=== PATIENT | female | born 1935 | race African-American/Black ===

== ENCOUNTER → 2017-03-24 | Outpatient (CLI) | payer OTHER, BC ==
[~2017-03-24] VITALS: Ht 154.9 cm; Wt 46.7 kg
[~2017-03-24] MED LIST: AMLODIPINE BESY10 MG PO; HYDRALAZINE 2525 MG PO; HYDROXYCHLOROQ200 M1 PO; NEURONTIN 300300 M1 PO; PERCOCET 10-321 EACH PO; PROZAC20 MG PO; XANAX 0.25 MG0.25 MG PO
--- NOTE | ~2017-03-24 | HPC ---
[facility] [place] [address] PAIN MANAGEMENT CONSULTATION Name: GOLDEN COLÓN Room #: REG [facility] ..#: [id number] Admission: 03/24/17 Attend Phys: Get Ricci DO Discharge: Date of : 35 Report #: [id number] THIS REPORT FOR: //name// CC: Get Montano MD DATE OF SERVICE: 03/24/2017 REFERRING PHYSICIAN: Jaqueline Montano MD CHIEF COMPLAINT: Low back pain, right lower extremity pain and paresthesias. HISTORY OF PRESENT ILLNESS: As you know, the patient is a very pleasant 81-year-old female who was last in our clinic on 11/11/2016 where she underwent a lumbar epidural injection under fluoroscopic guidance to address lumbar radicular symptoms. She returns today in followup visit stating she continues to experience good benefit with the previous injection, but is now placing pain score of 1-4/10. She reports 100% improvement in overall pain with previous injection, and then back to about 70% improvement overall. She has returned today requesting an epidural injection under fluoroscopic guidance to build on success of previous intervention. The patient denies injury or trauma that may have led to progression of symptoms. ALLERGIES: No known drug allergies. CURRENT MEDICATIONS: Fluoxetine 20 mg per day, gabapentin 300 mg 2 tabs p.o. b.i.d., hydralazine 25 mg per day, amlodipine 10 mg per day. SOCIAL HISTORY: The patient denies tobacco, alcohol, IV or illicit drug use. She is accompanied by her son who is present in the waiting room. IMAGING: No new imaging available. PHYSICAL EXAMINATION: VITAL SIGNS: Blood pressure 142/82, pulse 60, respiratory rate 14, unlabored. The patient is 97% on room air, height 5 feet 1 inch tall, weight 103 pounds, BMI calculated 19.5. GENERAL: Well-developed, well-nourished, well-hydrated 81-year-old female appearing stated age, pain is rated today at 1-4/10. HEENT: Normocephalic and atraumatic. Pupils equal, round, reactive to light. EXTREMITIES: Show no clubbing, no cyanosis, no edema. MUSCULOSKELETAL: Seated straight leg raising negative. Supine straight leg raising is mildly positive on the right. Fabere's test negative. Modified Gaenslen's positive for axial low back pain. Muscle bulk and tone equal and symmetrical in lower extremities. Strength is 5/5, intact to light touch from [address] [address] PAIN MANAGEMENT CONSULTATION Name: GOLDEN COLÓN Room #: REG [facility].#: [id number] Admission: 03/24/17 Attend Phys: Get Ricci DO Discharge: Date of : 35 Report #: [id number] L1 through S2 dermatomes. ASSESSMENT: 1. Symptomatic lumbar radiculopathy. 2. Lumbosacral spondylosis with radiculopathy. 3. Chronic intractable pain. PLAN: 1. The patient returns today in followup visit with the pain score of 4/10. She has noted 100% improvement in overall pain with the epidural injection lasting until just recently where she had a slow and progressive return of symptoms. She is now placing pain score around 1-4/10 depending on activity. She is requesting and we will perform the next in a series of epidural injections under fluoroscopic guidance. The patient was advised this is the third in the 6-month series, next available injection would be 04/27/2016, states she understands and does wish to undergo the procedure today in hopes of building on success of previous intervention. 2. No medication changes were made at today's visit, the patient to continue current medical therapy as previously prescribed. 3. The patient to return to our clinic on an as needed basis for next in a series of epidural injections. PROCEDURE NOTE DESCRIPTION OF PROCEDURE: L5-S1 right paramedian epidural steroid injection under fluoroscopic guidance. This is the third procedure of the first series that the patient is undergoing. After obtaining written consent, the patient was taken back to the fluoroscopy suite, placed in a prone position with pillow under the abdomen to decrease lumbar lordosis. The skin overlying the lumbosacral area was then prepped and draped in aseptic fashion. The L5-S1 vertebral interspace was then identified by AP fluoroscopy. The skin and subcutaneous tissue overlying the target site of injection was anesthetized with 3 mL 1% lidocaine. A 20-gauge 3-1/2 inch Tuohy needle was then advanced under fluoroscopic guidance towards the epidural space using a right paramedian approach. The epidural space was identified using loss of resistance to air technique. After negative aspiration for heme or cerebrospinal fluid, a total of 1 mL of Omnipaque was injected. A lumbar epidurogram was confirmed using both AP and lateral fluoroscopy. After negative aspiration for heme or cerebrospinal fluid, 5 mL of solution containing 2 mL 40 mg per mL, 80 mg total triamcinolone, 3 mL lidocaine 1% was injected in increments. Contrast spread was noted posterior epidural space. The needle was then retracted approximately half way and needle tract flushed with 1 mL of 1% lidocaine. Needle was then removed. There were no [address] [address] PAIN MANAGEMENT CONSULTATION Name: GOLDEN COLÓN Room #: REG [facility]#: [id number] Admission: 03/24/17 Attend Phys: Get Ricci DO Discharge: Date of : 35 Report #: [id number] apparent sensory or motor deficits in the lower extremity following the procedure. A sterile bandage was placed over the injection site. The heart rate, pulse, oximetry and blood pressure were continuously monitored after the procedure. There were no apparent complications. The patient tolerated the procedure well and was carefully escorted to the recovery room in stable condition. There were no apparent complications. After meeting discharge criteria, the patient was then discharged home. By: [id number] Get Ricci DO /nt
[2017-03-24 12:51] VITALS: BP 142/82
== END ==
LOC: PAIN 12-09 09:54
DX: M47.27 Other spondylosis with radiculopathy, lumbosacral region (principal); I10 Essential (primary) hypertension; F32.89 Other specified depressive episodes

== ENCOUNTER → 2017-07-07 | Outpatient (CLI) | payer OTHER, BC ==
[~2017-07-07] VITALS: Ht 154.9 cm; Wt 48.4 kg
[~2017-07-07] MED LIST changes: +ALPHAGAN P15 ML OP; +COSOPT OCUMETER10 M1 OP
--- NOTE | ~2017-07-07 | HPC ---
[facility] [address] [address] PAIN MANAGEMENT CONSULTATION Name: GOLDEN COLÓN Room #: REG [facility]..#: [id number] Admission: 07/07/17 Attend Phys: Get Ricci DO Discharge: Date of : 35 Report #: [id number] THIS REPORT FOR: //name// CC: Get Montano MD DATE OF SERVICE: 07/07/2017 DATE OF SERVICE: 07/07/2017 CHIEF COMPLAINT: Low back pain, right lower extremity pain and paresthesias. HISTORY OF PRESENT ILLNESS: As you know, the patient is an extremely pleasant 81-year-old female, who returns today in followup visit to undergo next in the series of epidural injections. She reports previous epidural injection provided 80% improvement in overall pain. This lasted until just the early part of June with a slow and progressive return of symptoms. She denies injury or trauma that may have led to recurrence of symptoms. She returns requesting epidural injection under fluoroscopic guidance. ALLERGIES: No known drug allergies. CURRENT MEDICATIONS: Fluoxetine, gabapentin, hydralazine, amlodipine. SOCIAL HISTORY: The patient denies tobacco, alcohol, IV or illicit drug use. She is unaccompanied today. IMAGING: No new imaging available. PHYSICAL EXAMINATION: VITAL SIGNS: Blood pressure 131/74, pulse 67, respiratory rate 16, unlabored. The patient is 96% on room air, height 5 feet 1 inch tall, weight 106.6 pounds, BMI calculated 20.2. GENERAL: Well developed, well nourished, well hydrated 81-year-old female appearing her stated age placing current pain score at 5-7/10. HEENT: Normocephalic, atraumatic. Pupils equal, round, reactive to light. Extraocular muscles are intact. Sclerae nonicteric without injection. NEUROLOGIC: Cranial nerves 2-12 grossly intact. Speech fluent. EXTREMITIES: Show no clubbing, no cyanosis, no edema. MUSCULOSKELETAL: Lower extremity strength equal and symmetrical 5/5. Seated straight leg raising negative. Supine straight leg raising positive on the right. Fabere's test negative. Modified Gaenslen's positive for axial low back pain. ASSESSMENT: [facility] [address] [place] [address] PAIN MANAGEMENT CONSULTATION Name: GOLDEN COLÓN Room #: REG [facility]#: [id number] Admission: 07/07/17 Attend Phys: Get Ricci DO Discharge: Date of : 35 Report #: [id number] 1. Symptomatic lumbar radiculopathy. 2. Lumbosacral spondylosis with radiculopathy. 3. Chronic intractable pain. PLAN: 1. The patient returns today in followup visit requesting to undergo next in the series of epidural injections under fluoroscopic guidance. As you are aware, the patient received 80% improvement in overall pain with previous epidural injection lasting until just a couple of days ago. The patient has had a slow and progressive return of symptoms, returning in followup visit requesting epidural injection to build on success of previous intervention. The patient was advised risks and benefits of a lumbar epidural injection. These risks include but are not necessarily limited to bleeding, bruising, infection, worsening pain, no relief of pain, also risk of temporary or permanent muscle weakness, temporary or permanent nerve damage, possible paralysis and . The patient states understood and wished to proceed. 2. No medication changes were made at today's visit, the patient continue current medical therapy as previously prescribed. 3. The patient to return to our clinic on an as needed basis for the next in a series of epidural injection and to discuss other treatment options for lumbar radiculopathy. DESCRIPTION OF PROCEDURE: L5-S1 right paramedian epidural steroid injection under fluoroscopic guidance. This is the first procedure of the second series that the patient is undergoing. After obtaining written consent, the patient was taken back to the fluoroscopy suite, placed in a prone position with pillow under the abdomen to decrease lumbar lordosis. The skin overlying the lumbosacral area was then prepped and draped in aseptic fashion. The L5-S1 vertebral interspace was then identified by AP fluoroscopy. The skin and subcutaneous tissue overlying the target site of injection was anesthetized with 3 mL 1% lidocaine. A 20-guage 3-1/2 inches Tuohy needle was then advanced under fluoroscopic guidance towards the epidural space using a right paramedian approach. The epidural space was identified using loss of resistance to air technique. After negative aspiration for heme or cerebrospinal fluid, a total of 1 mL of Omnipaque was injected. A lumbar epidurogram was confirmed using both AP and lateral fluoroscopy. After negative aspiration for heme or cerebrospinal fluid, 5 mL of a solution containing 2 mL 40 mg per mL, 80 mL total triamcinolone, 3 mL of lidocaine 1% was injected in increments. Contrast spread was noted posterior epidural space. The needle was then retracted approximately half way and needle tract flushed with 1 mL of 1% lidocaine. Needle was then removed. There were no apparent sensory or motor deficits in the lower extremity following the [facility] [address] [place] [address] PAIN MANAGEMENT CONSULTATION Name: GOLDEN COLÓN Room #: REG OZ Raya#: [id number] Admission: 07/07/17 Attend Phys: Get Ricci DO Discharge: Date of : 35 Report #: [id number] procedure. A sterile bandage was placed over the injection site. The heart rate, pulse, oximetry and blood pressure were continuously monitored after the procedure. There were no apparent complications. The patient tolerated the procedure well and was carefully escorted to the recovery room in stable condition. There were no apparent complications. After meeting discharge criteria, the patient was then discharged home. <ELECTRONICALLY SIGNED> By: Get Ricci DO 07/08/17 0833 [id number] Get Ricci DO /nt
[2017-07-07 13:03] VITALS: BP 131/74
== END | disposition home or self-care (01) ==
LOC: PAIN 06-23 08:59
DX: M54.16 Radiculopathy, lumbar region (principal); M47.27 Other spondylosis with radiculopathy, lumbosacral region; G89.29 Other chronic pain; Z79.899 Other long term (current) drug therapy

== ENCOUNTER → 2017-09-09 | Outpatient (CLI) | payer OTHER, BC ==
[~2017-09-09] VITALS: Ht 154.9 cm; Wt 50.1 kg
--- NOTE | ~2017-09-09 | HPC ---
[facility] [place] [address] PAIN MANAGEMENT CONSULTATION Name: GOLDEN COLÓN Room #: REG [facility]..#: [id number] Admission: 09/09/17 Attend Phys: Get Ricci DO Discharge: Date of : 35 Report #: [id number] THIS REPORT FOR: //name// CC: Get Montano MD DATE OF SERVICE: 09/09/2017 REFERRING PHYSICIAN: Jaqueline Montano MD CHIEF COMPLAINT: Low back pain, right lower extremity pain and paresthesias. HISTORY OF PRESENT ILLNESS: As you know, the patient is a very pleasant 82-year-old female who returns today in followup visit with recurrent low back pain, right lower extremity pain with paresthesias. The patient is placing pain score today at around 5/10, daily average at 7/10. She reports a 70% improvement in overall pain with the injection provided in June, but unfortunately has had a slow and progressive return of symptoms. She returns today requesting next in a series of epidural injections to build on the success of previous intervention. ALLERGIES: No known drug allergies. CURRENT MEDICATIONS: Fluoxetine, gabapentin, hydralazine, and amlodipine. SOCIAL HISTORY: The patient denies tobacco, alcohol, IV or illicit drug use. She is unaccompanied today. IMAGING: No new imaging available. PHYSICAL EXAMINATION: VITAL SIGNS: Blood pressure 136/76, pulse 70, respiratory rate 14 and unlabored, the patient is 98% on room air, height 5 feet 1 inch tall, weight 110.4 pounds, and BMI calculated 20.9. GENERAL: Well-developed, well-nourished, well-hydrated, thin 82-year-old female, appearing her stated age, she is placing current pain score 5-7/10 depending on activity. HEENT: Normocephalic, atraumatic. Pupils are equal, round, and reactive to light. Extraocular muscles are intact. EXTREMITIES: Show no clubbing, no cyanosis, and no edema. MUSCULOSKELETAL: Seated straight leg raising negative. Supine straight leg raising mildly positive on the right. Jossie's test negative. Modified Gaenslen's positive for axial low back pain. ASSESSMENT: [facility] [address] [place] [address] PAIN MANAGEMENT CONSULTATION Name: GOLDEN COLÓN Room #: REG [facility]#: [id number] Admission: 09/09/17 Attend Phys: Get Ricci DO Discharge: Date of : 35 Report #: [id number] 1. Symptomatic lumbar radiculopathy. 2. Lumbosacral spondylosis with radiculopathy. 3. Chronic intractable pain. PLAN: 1. The patient returns today in followup visit requesting to undergo next in the series of epidural injections. She reported good benefit with the previous epidural injection provided in June. She returns today requesting next in the series in hopes of building on success of previous intervention. The patient was advised risks and benefits of the procedure and states understood and wished to proceed. 2. No medication changes were made at today's visit, the patient to continue current medical therapy as previously prescribed. 3. The patient to return to our clinic on an as needed basis to undergo potential next in a series of epidural injections. PROCEDURE NOTE DESCRIPTION OF PROCEDURE: L5-S1 right paramedian epidural steroid injection under fluoroscopic guidance. This is the first procedure of the second series that the patient is undergoing. After obtaining written consent, the patient was taken back to the fluoroscopy suite, placed in a prone position with pillow under the abdomen to decrease lumbar lordosis. The skin overlying the lumbosacral area was then prepped and draped in aseptic fashion. The L5-S1 vertebral interspace was then identified by AP fluoroscopy. The skin and subcutaneous tissue overlying the target site of injection was anesthetized with 3 mL 1% lidocaine. A 20-gauge 3-1/2-inch Tuohy needle was then advanced under fluoroscopic guidance towards the epidural space using a right paramedian approach. The epidural space was identified using loss of resistance to air technique. After negative aspiration for heme or cerebrospinal fluid, a total of 1 mL of Omnipaque was injected. A lumbar epidurogram was confirmed using both AP and lateral fluoroscopy. After negative aspiration for heme or cerebrospinal fluid, 5 mL of a solution containing 2 mL 40 mg per mL, 80 mg total triamcinolone, 3 mL lidocaine 1% was injected in increments. Contrast spread was noted posterior epidural space. The needle was then retracted approximately half way and needle tract flushed with 1 mL of 1% lidocaine. Needle was then removed. There were no apparent sensory or motor deficits in the lower extremity following the procedure. A sterile bandage was placed over the injection site. The heart rate, pulse, oximetry and blood pressure were continuously monitored after the procedure. There were no apparent complications. The patient tolerated the procedure well and was carefully escorted to the recovery room in [address] [address] PAIN MANAGEMENT CONSULTATION Name: GOLDEN COLÓN Room #: REG [facility]#: [id number] Admission: 09/09/17 Attend Phys: Get Ricci DO Discharge: Date of : 35 Report #: [id number] stable condition. There were no apparent complications. After meeting discharge criteria, the patient was then discharged home. By: [id number] Get Ricci DO /nt
[2017-09-09 08:28] VITALS: BP 136/76
== END | disposition home or self-care (01) ==
LOC: PAIN 06:55
DX: M47.27 Other spondylosis with radiculopathy, lumbosacral region (principal); G89.29 Other chronic pain; Z79.899 Other long term (current) drug therapy; Z98.890 Other specified postprocedural states

== ENCOUNTER → 2017-12-02 | Outpatient (CLI) | payer OTHER, BC ==
[~2017-12-02] VITALS: Ht 154.9 cm; Wt 50.0 kg
[~2017-12-02] MED LIST changes: +LIPITOR 20 MG T20 M1 PO; +NEURONTIN600 MG PO
--- NOTE | ~2017-12-02 | HPC ---
[facility] [address] [place] [address] PAIN MANAGEMENT CONSULTATION Name: GOLDEN COLÓN Room #: REG OZ M.Saeed.#: [id number] Admission: 12/02/17 Attend Phys: Get Ricci DO Discharge: Date of : 35 Report #: [id number] THIS REPORT FOR: //name// CC: Get Montano DATE OF SERVICE: 12/02/2017 REFERRING PHYSICIAN: Jaqueline Montano MD. CHIEF COMPLAINT: Low back pain, right lower extremity pain and paresthesias. HISTORY OF PRESENT ILLNESS: As you know, the patient is a very pleasant 82-year-old female who returns today in followup visit with recurrent low back pain and right lower extremity pain with paresthesias. The patient places pain score 3/10, states activity exacerbates symptoms as does awakening in the morning hours and trying to stand from bed. She indicates pain is aching, numbness, tingling and weakness on the right side. Repositioning, exercising, epidural injections tend to improve pain. The patient reports a 75% improvement in overall pain with previous epidural injection lasting until just about 1 week ago. She made today's appointment to undergo the next in a series of epidural injections. She denies new injury or new trauma that may have led to recurrence of symptoms. ALLERGIES: No known drug allergies. CURRENT MEDICATIONS: Fluoxetine, gabapentin, hydralazine, amlodipine. SOCIAL HISTORY: The patient denies tobacco, alcohol, IV or illicit drug use. She is unaccompanied today. IMAGING: No new imaging available. PHYSICAL EXAMINATION: VITAL SIGNS: Blood pressure 123/64, pulse 74, respiratory rate 14 and unlabored. The patient is 97% on room air. Height 5 feet 1 inch tall, weight 110.2 pounds, BMI calculated 20.8. GENERAL: Well-developed, well-nourished, well-hydrated 82-year-old female, appearing her stated age. She is placing current pain score at 3/10. HEENT: Normocephalic, atraumatic. Pupils equal, round, reactive to light. Extraocular muscles are intact. Speech is fluent. EXTREMITIES: Show no clubbing, no cyanosis, no edema. MUSCULOSKELETAL: Seated straight leg raising negative. Supine straight leg raising positive right. KWADWO test negative. Muscle bulk and tone equal and symmetrical in lower extremities. She is intact to light touch from L1 through [address] [address] PAIN MANAGEMENT CONSULTATION Name: GOLDEN COLÓN Room #: REG CLI [facility]#: [id number] Admission: 12/02/17 Attend Phys: Get Ricci DO Discharge: Date of : 35 Report #: [id number] S2 dermatomes. ASSESSMENT: 1. Symptomatic lumbar radiculopathy. 2. Lumbosacral spondylosis with radiculopathy. 3. Lumbar degeneration. 4. Chronic intractable pain. PLAN: 1. The patient returns today in followup visit to undergo next in the series of epidural injections under fluoroscopic guidance. She reports 75% improvement in overall pain with previous epidural injection, hopeful to see similar improvement today. She has been advised risks and benefits of the procedure, states understood and wished to proceed. 2. No medication changes were made at today's visit. The patient to continue current medical therapy as previously prescribed. 3. The patient to return to our clinic on an as needed basis for possible next in a series of epidural injections and discuss other treatment options including a spinal cord stimulator and surgical options if requested. PROCEDURE NOTE PROCEDURE: L5-S1 right paramedian epidural steroid injection under fluoroscopic guidance. DESCRIPTION OF PROCEDURE: This is the 2nd procedure of the 2nd series that the patient is undergoing. After obtaining written consent, the patient was taken back to the fluoroscopy suite, placed in a prone position with pillow under the abdomen to decrease lumbar lordosis. The skin overlying the lumbosacral area was then prepped and draped in aseptic fashion. The L5-S1 vertebral interspace was then identified by AP fluoroscopy. The skin and subcutaneous tissue overlying the target site of injection was anesthetized with 3 mL 1% lidocaine. A 20-guage 3.5-inch Tuohy needle was then advanced under fluoroscopic guidance towards the epidural space using a right paramedian approach. The epidural space was identified using loss of resistance to air technique. After negative aspiration for heme or cerebrospinal fluid, a total of 1 mL of Omnipaque was injected. A lumbar epidurogram was confirmed using both AP and lateral fluoroscopy. After negative aspiration for heme or cerebrospinal fluid, 5 mL of a solution containing 2 mL 40 mg/mL, 80 mg total triamcinolone, 3 mL of lidocaine 1% was injected in increments. Contrast spread was noted posterior epidural space. The needle was then retracted approximately half way and needle tract flushed with 1 mL of 1% lidocaine. Needle was then removed. There were no apparent sensory or motor deficits in the lower extremity following the [facility] [address] [place] [address] PAIN MANAGEMENT CONSULTATION Name: GOLDEN COLÓN Room #: REG [facility] Zakiya.#: [id number] Admission: 12/02/17 Attend Phys: Get Ricci DO Discharge: Date of : 35 Report #: [id number] procedure. A sterile bandage was placed over the injection site. The heart rate, pulse, oximetry and blood pressure were continuously monitored after the procedure. There were no complications. The patient tolerated the procedure well and was carefully escorted to the recovery room in stable condition. There were no apparent complications. After meeting discharge criteria, the patient was then discharged home. <ELECTRONICALLY SIGNED> By: Get Ricci DO 12/07/17 1200 [id number] Get Ricci DO /nt
[2017-12-02 08:27] VITALS: BP 123/64
== END | disposition home or self-care (01) ==
LOC: PAIN 06:54
DX: M51.16 Intervertebral disc disorders with radiculopathy, lumbar region (principal); G89.29 Other chronic pain; M47.27 Other spondylosis with radiculopathy, lumbosacral region; Z79.899 Other long term (current) drug therapy

== ENCOUNTER → 2018-06-30 | Outpatient (CLI) | payer OTHER, BC ==
[~2018-06-30] VITALS: Ht 154.9 cm; Wt 49.5 kg
[~2018-06-30] MED LIST changes: -LIPITOR 20 MG T20 M1 PO
--- NOTE | ~2018-06-30 | HPC ---
[facility] [place] [address] PAIN MANAGEMENT CONSULTATION Name: GOLDEN COLÓN Room #: REG OZ Sigala.#: [id number] Admission: 06/30/18 Attend Phys: Get Ricci DO Discharge: Date of : 35 Report #: [id number] THIS REPORT FOR: //name// CC: FAM physician/PCP Get MONTANO MD DATE OF SERVICE: 06/30/2018 REFERRING PHYSICIAN: Jaqueline Montano MD CHIEF COMPLAINT: Low back pain, right lower extremity pain and paresthesias. HISTORY OF PRESENT ILLNESS: As you know, the patient is an extremely pleasant 82-year-old female who returns today in followup visit to undergo next in the series of epidural injections. The patient reports 98% improvement in overall pain with the previous epidural injection lasting for 2 months. The patient denies new injury or trauma that may have led to symptom recurrence. She states her pain has slowly and progressively returned. She requests next in the series of epidural injections under fluoroscopic guidance to be provided today to address lumbar radicular symptoms involving low back and right lower extremity. ALLERGIES: No known drug allergies. CURRENT MEDICATIONS: Gabapentin, alprazolam, Alphagan, Cosopt, fluoxetine, hydralazine and amlodipine. SOCIAL HISTORY: The patient denies tobacco, alcohol, IV or illicit drug use. She is retired, retired years ago, unaccompanied today. IMAGING: No new imaging available. PQRS: The patient has osteoarthritis of the low back, bilateral knees and hips. No rheumatoid arthritis. She is treated for hypertension, but is not on blood thinners. She is placing pain score today at approximately 3/10. She is not a fall risk, has not had a fall in the last 3 months. Pain impact score at around 20/70, mild interference. PHYSICAL EXAMINATION: VITAL SIGNS: Blood pressure 120/75, pulse 73, respiratory rate 14 and unlabored, the patient is 95% on room air, height 5 feet 1 inch tall, weight 109.2 pounds, and BMI calculated 20.6. GENERAL: Well-developed, well-nourished, well-hydrated 82-year-old female, appearing stated age, placing current pain score 3/10. HEENT: Normocephalic, atraumatic. Pupils are equal, round, and reactive to light. Speech remains fluent. The patient deemed an excellent historian. [address] [address] PAIN MANAGEMENT CONSULTATION Name: GOLDEN COLÓN Room #: REG CLI [facility]#: [id number] Admission: 06/30/18 Attend Phys: Get Ricci DO Discharge: Date of : 35 Report #: [id number] EXTREMITIES: Show no clubbing, no cyanosis, and no edema. MUSCULOSKELETAL: Lower extremity strength is symmetrical again today 5/5, intact to light touch from L1 through S2 dermatomes. Seated straight leg raising negative. Supine straight leg raising positive on the right. Jossie's test negative. Gait is normal. ASSESSMENT: 1. Symptomatic lumbar radiculopathy. 2. Lumbosacral spondylosis with radiculopathy. 3. Lumbar degeneration. 4. Chronic intractable pain. PLAN: 1. The patient returns today in followup visit to undergo next in the series of epidural injections. As indicated above, the patient received 98% improvement in overall pain with previous epidural injection, she returns today requesting repeating the injection today to build on success to address the 3/10 pain. The patient was advised risks and benefits of the procedure, states understood and wished to proceed. 2. No medication changes made at today's visit. The patient will continue current medical therapy as previously prescribed. 3. We will see the patient back in followup visit on an as needed basis for possible next in the series of epidural injections. PROCEDURE NOTE DESCRIPTION OF PROCEDURE: L5-S1 right paramedian epidural steroid injection under fluoroscopic guidance. This is the second procedure of the third series that the patient is undergoing. After obtaining written consent, the patient was taken back to the fluoroscopy suite, placed in a prone position with pillow under the abdomen to decrease lumbar lordosis. The skin overlying the lumbosacral area was then prepped and draped in aseptic fashion. The L5-S1 vertebral interspace was then identified by AP fluoroscopy. The skin and subcutaneous tissue overlying the target site of injection was anesthetized with 3 mL 1% lidocaine. A 20-gauge 3-1/2-inch Tuohy needle was then advanced under fluoroscopic guidance towards the epidural space using a right paramedian approach. The epidural space was identified using loss of resistance to air technique. After negative aspiration for heme or cerebrospinal fluid, a total of 1 mL of Omnipaque was injected. A lumbar epidurogram was confirmed using both AP and lateral fluoroscopy. After negative aspiration for heme or cerebrospinal fluid, 5 mL of a solution containing 2 mL 40 mg per mL, 80 mg total triamcinolone, 3 mL lidocaine 1% was injected in increments. Contrast spread was noted posterior [facility] [address] [place] [address] PAIN MANAGEMENT CONSULTATION Name: GOLDEN COLÓN Room #: REG Marly Sigala#: [id number] Admission: 06/30/18 Attend Phys: Get Ricci DO Discharge: Date of : 35 Report #: [id number] epidural space. The needle was then retracted approximately half way and needle tract flushed with 1 mL of 1% lidocaine. Needle was then removed. There were no apparent sensory or motor deficits in the lower extremity following the procedure. A sterile bandage was placed over the injection site. The heart rate, pulse, oximetry and blood pressure were continuously monitored after the procedure. There were no apparent complications. The patient tolerated the procedure well and was carefully escorted to the recovery room in stable condition. There were no apparent complications. After meeting discharge criteria, the patient was then discharged home. <ELECTRONICALLY SIGNED> By: Get Ricci DO 07/02/18 0814 [id number] Get Ricci DO /nt
[2018-06-30 07:40] VITALS: BP 120/75
== END | disposition home or self-care (01) ==
LOC: PAIN 06:31
DX: M51.16 Intervertebral disc disorders with radiculopathy, lumbar region (principal); M47.27 Other spondylosis with radiculopathy, lumbosacral region; G89.29 Other chronic pain; M17.0 Bilateral primary osteoarthritis of knee; M16.0 Bilateral primary osteoarthritis of hip; I10 Essential (primary) hypertension; Z79.899 Other long term (current) drug therapy

== ENCOUNTER → 2018-09-22 | Outpatient (CLI) | payer OTHER, BC ==
[~2018-09-22] VITALS: Ht 154.9 cm; Wt 48.1 kg
[~2018-09-22] MED LIST changes: +LIPITOR 20 MG T20 M1 PO
--- NOTE | ~2018-09-22 | HPC ---
[facility] [address] [place] [address] PAIN MANAGEMENT CONSULTATION Name: GOLDEN COLÓN Room #: REG OZ Sigala.#: [id number] Admission: 09/22/18 Attend Phys: Get Ricci DO Discharge: Date of : 35 Report #: [id number] THIS REPORT FOR: //name// CC: [facility] physician/PCP Get TOMPKINS MD DATE OF SERVICE: 09/22/2018 CHIEF COMPLAINT: Low back pain, lower extremity pain with paresthesias, right greater than left. HISTORY OF PRESENT ILLNESS: As you know, the patient is an extremely pleasant 83-year-old female who returns today in followup visit to undergo next in the series of lumbar epidural injections under fluoroscopic guidance. The patient has done very well with previous epidural injections, most recent providing 95-98% improvement in overall pain. She returns today in followup visit requesting to undergo next in the series of epidural injections. She denies any new injury, new trauma, that may have led to symptom recurrence. She is extremely pleased with response to the epidural injections, returning today to undergo next in the series to build on success of the previous treatments. ALLERGIES: No known drug allergies. CURRENT MEDICATIONS: Gabapentin, alprazolam, Alphagan, Cosopt, fluoxetine, hydralazine and amlodipine. SOCIAL HISTORY: The patient denies tobacco, alcohol, IV or illicit drug use. She is retired, retired years ago, unaccompanied today. IMAGING: No new imaging available. PQRS: The patient has osteoarthritis low back, bilateral knees, bilateral hips. No rheumatoid arthritis. She is treated for hypertension, but is not on any blood thinners. She is placing pain score today at around 4/10. She is not on any chronic opioids. She is not a fall risk, has not had a fall in the last [address] pain impact at 24/70, mild to moderate. PHYSICAL EXAMINATION: VITAL SIGNS: Blood pressure 151/80, pulse is 71, respiratory rate 14 and unlabored. The patient is 98% on room air. Height 5 feet 1 inch tall, weight 106 pounds, BMI calculated 20. GENERAL: Well-developed, well-nourished, well-hydrated, 83-year-old female, appearing stated age, placing current pain score at around 4/10. HEENT: Normocephalic, atraumatic. Pupils equal, round, reactive to light. Extraocular muscles are intact. [address] [address] PAIN MANAGEMENT CONSULTATION Name: GOLDEN COLÓN Room #: REG CLI [facility].#: [id number] Admission: 09/22/18 Attend Phys: Get Ricci DO Discharge: Date of : 35 Report #: [id number] EXTREMITIES: Show no clubbing, no cyanosis, no edema. MUSCULOSKELETAL: Lower extremity strength appears equal and symmetrical 5/5. She is intact to light touch from L1 through S2 dermatomes. Seated straight leg raise is negative. Supine straight leg raising remains positive on the right. KWADWO test negative. Gait appears normal. Lumbar provocation testing is met with axial back pain. No radiation of symptoms. ASSESSMENT: 1. Symptomatic lumbar radiculopathy. 2. Lumbosacral spondylosis with radiculopathy. 3. Lumbar degeneration. 4. Chronic intractable pain. PLAN: 1. The patient returns today in followup visit requesting to undergo next in the series of epidural injections under fluoroscopic guidance. She reports 95-98% improvement in overall pain with the epidural injection provided 2 months ago. She is extremely pleased with response to the injection, has returned today to undergo next in the series. She is denying any side effects with the injection therapy and feels they are working beneficially. 2. No medication changes made at today's visit. The patient to continue current medical therapy as previously prescribed. 3. We will see the patient back in followup visit on an as needed basis for possible next in the series of epidural injections. PROCEDURE NOTE DESCRIPTION OF PROCEDURE: L5-S1 parasagittal epidural steroid injection under fluoroscopic guidance. This is the 1st procedure of the 4th series that the patient is undergoing. After obtaining written consent, the patient was taken back to the fluoroscopy suite, placed in a prone position with pillow under the abdomen to decrease lumbar lordosis. The skin overlying the lumbosacral area was then prepped and draped in aseptic fashion. The L5-S1 vertebral interspace was then identified by AP fluoroscopy. The skin and subcutaneous tissue overlying the target site of injection was anesthetized with 3 mL 1% lidocaine. A 20-guage 3-1/2 inch Tuohy needle was then advanced under fluoroscopic guidance towards the epidural space using a right parasagittal approach. The epidural space was identified using loss of resistance to air technique. After negative aspiration for heme or cerebrospinal fluid, a total of 0.6 mL of Omnipaque was injected. A lumbar epidurogram was confirmed using both AP and lateral fluoroscopy. After negative aspiration for heme or cerebrospinal fluid, 5 mL of a solution containing 2 mL 40 mg per mL 80 mg total triamcinolone, 3 mL of [facility] [address] [place] [address] PAIN MANAGEMENT CONSULTATION Name: GOLDEN COLÓN Room #: REG OZ Raya#: [id number] Admission: 09/22/18 Attend Phys: Get Ricci DO Discharge: Date of : 35 Report #: [id number] lidocaine 1% was injected in increments. Contrast spread was noted posterior epidural space. The needle was then retracted approximately half way and needle tract flushed with 1 mL of 1% of lidocaine. Needle was then removed. There were no apparent sensory or motor deficits in the lower extremity following the procedure. A sterile bandage was placed over the injection site. The heart rate, pulse, oximetry and blood pressure were continuously monitored after the procedure. There were no apparent complications. The patient tolerated the procedure well and was carefully escorted to the recovery room in stable condition. There were no apparent complications. After meeting discharge criteria, the patient was then discharged home. By: [id number] Get Ricci DO /nt
[2018-09-22 09:00] VITALS: BP 151/80
== END | disposition home or self-care (01) ==
LOC: PAIN 09-15 07:45
DX: M51.16 Intervertebral disc disorders with radiculopathy, lumbar region (principal); M47.27 Other spondylosis with radiculopathy, lumbosacral region; G89.29 Other chronic pain; Z79.899 Other long term (current) drug therapy; Z98.890 Other specified postprocedural states

== ENCOUNTER → 2018-12-08 | Outpatient (CLI) | payer OTHER, BC ==
[~2018-12-08] VITALS: Ht 154.9 cm; Wt 49.7 kg
--- NOTE | ~2018-12-08 | HPC ---
[facility] [address] [address] PAIN MANAGEMENT CONSULTATION Name: GOLDEN COLÓN Room #: REG OZ Cortez.Saeed.#: [id number] Admission: 12/08/18 Attend Phys: Get Ricci DO Discharge: Date of : 35 Report #: [id number] THIS REPORT FOR: //name// CC: FAM physician/PCP Get Montano MD DATE OF SERVICE: 12/08/2018 REFERRING PHYSICIAN: Jaqueline Montano M.D. CHIEF COMPLAINT: Low back pain and lower extremity pain with paresthesias, right greater than left. HISTORY OF PRESENT ILLNESS: As you know, the patient is extremely pleasant 83-year-old female who returns today in followup visit now reporting pain score of around 4/10. She states the majority of her pain today is radiating from the low back down the right lower extremity. She is placing pain today 4/10 and states her pain is aching and burning in sensation, tends to worsen in the evening hours. Medications, repositioning, exercise and epidural injections have provided good and prolonged benefit. She indicates the previous epidural injection provided near 100% improvement in overall pain lasting for nearly 2 months. She returns today in followup visit requesting to undergo next in the series of lumbar epidural injections to build on success of previous intervention. She denies new injury, new trauma or any changes in medical history since our last visit. ALLERGIES: No known drug allergies. CURRENT MEDICATIONS: Gabapentin, alprazolam, Alphagan, Cosopt, fluoxetine, hydralazine and amlodipine. SOCIAL HISTORY: The patient denies tobacco, alcohol, IV or illicit drug use. She is retired, retired years ago, unaccompanied today. IMAGING DATA: No new imaging available. PQRS: The patient has known osteoarthritis of the low back, bilateral knees and bilateral hips. No rheumatoid arthritis. She is treated for hypertension but not on any blood thinners. She is placing pain today at 4/10. She is not a fall risk, has not had a fall in the last 3 months. She is placing pain impact score at 31/70, [id number] interference of daily activities secondary to pain. PHYSICAL EXAMINATION: VITAL SIGNS: Blood pressure 151/74, pulse is 80 and respiratory rate 14 and [facility] [address] [place] [address] PAIN MANAGEMENT CONSULTATION Name: GOLDEN COLÓN Room #: REG [facility].#: [id number] Admission: 12/08/18 Attend Phys: Get Ricci DO Discharge: Date of : 35 Report #: [id number] unlabored. The patient is 98% on room air. Height 5 feet 1 inch tall, weight 109.6 pounds and BMI calculated 20.7. GENERAL: Well-developed, well-nourished and well-hydrated 83-year-old female appearing stated age, placing current pain score 4/10. HEENT: Normocephalic and atraumatic. Pupils equal, round and reactive to light. EXTREMITIES: Show no clubbing, no cyanosis and no edema. MUSCULOSKELETAL: Lower extremity strength is symmetrical again today, 5/5. Slight giveaway strength noted due to pain with hip flexion and knee extension on the right when compared to left. Seated straight leg raising mildly positive right and supine straight leg raising positive right. Jossie's test negative. ASSESSMENT: 1. Symptomatic lumbar radiculopathy. 2. Lumbosacral spondylosis with radiculopathy. 3. Degeneration of the lumbar spine. 4. Chronic intractable pain. PLAN: 1. The patient returns today in followup visit to undergo next in the series of lumbar epidural injections. She reports near 100% improvement in overall pain with previous epidural injection lasting for nearly 2 months. She returns today to undergo next in the series in hopes of improving pain. She has been advised of risks and benefits of this procedure. These risks include but are not necessarily limited to bleeding, bruising, infection, worsening pain, no relief of pain, also risk of temporary or permanent muscle weakness, temporary or permanent nerve damage, possible paralysis and . The patient states understood and wished to proceed. 2. No medication changes made at today's visit. The patient to continue current medical therapy as previously prescribed. 3. We will see the patient back in followup visit on an as needed basis for the next in the series of lumbar epidural injections and discuss other treatment options. PROCEDURE NOTE DESCRIPTION OF PROCEDURE: L5-S1 right paramedian epidural steroid injection under fluoroscopic guidance. This is the second procedure of the fourth series that the patient is undergoing. After obtaining written consent, the patient was taken back to the fluoroscopy suite, placed in a prone position with pillow under the abdomen to decrease lumbar lordosis. The skin overlying the lumbosacral area was then prepped and draped in aseptic fashion. The L5-S1 vertebral interspace was then identified [address] [address] PAIN MANAGEMENT CONSULTATION Name: GOLDEN COLÓN Room #: REG OZ Raya#: [id number] Admission: 12/08/18 Attend Phys: Get Ricci DO Discharge: Date of : 35 Report #: [id number] by AP fluoroscopy. The skin and subcutaneous tissue overlying the target site of injection was anesthetized with 3 mL 1% lidocaine. A 20 gauge 3-1/2 inch Tuohy needle was then advanced under fluoroscopic guidance towards the epidural space using a right paramedian approach. The epidural space was identified using loss of resistance to air technique. After negative aspiration for heme or cerebrospinal fluid, a total of 1 mL of Omnipaque was injected. A lumbar epidurogram was confirmed using both AP and lateral fluoroscopy. After negative aspiration for heme or cerebrospinal fluid, 5 mL of a solution containing 2 mL 40 mg per mL, 80 mg total triamcinolone, 3 mL lidocaine 1% was injected in increments. Contrast spread was noted posterior epidural space. The needle was then retracted approximately half way and needle tract flushed with 1 mL of 1% lidocaine. Needle was then removed. There were no apparent sensory or motor deficits in the lower extremity following the procedure. A sterile bandage was placed over the injection site. The heart rate, pulse, oximetry and blood pressure were continuously monitored after the procedure. There were no apparent complications. The patient tolerated the procedure well and was carefully escorted to the recovery room in stable condition. There were no apparent complications. After meeting discharge criteria, the patient was then discharged home. By: [id number] Get Ricci DO /nt
[2018-12-08 08:21] VITALS: BP 151/74
--- NOTE | 2018-12-08 08:33 | NUR ---
Pain Clinic Assessment: 1. History of Osteoarthritis: NO History of Rheumatoid Arthritis: NO 2. Height: 5 ft. 1 in. 154.9 cm. Weight: 109.6 lb. oz. 49.714 kg. Patient's BMI: 20.7 3. Vital Signs: BP: 151/74 Pulse: 80 Resp: 14 Temp: 02 Sat: 98 ECG Mon: 4. Pain Intensity: 4 5. Fall Risk: Dizziness: N Needs help standing or walking: N Fallen in the last 3 months: N Fall risk comments: 6. Patient on Blood Thinner: None 7. History of Hypertension: Y 8. Opioid Therapy greater than 6 weeks: N Opiate Contract Signed: 9. Risk Assessment Tool Provided: LOW RISK 12/02 10. Functional Assessment Tool: 11. Recreational Drug Use: Never Drug Type: Tobacco Use: Never Smoker Tobacco Type: Amount or Packs/day: How Many Years: Alcohol Use: No Frequency: Quant:
== END | disposition home or self-care (01) ==
LOC: PAIN 06:47
DX: M51.16 Intervertebral disc disorders with radiculopathy, lumbar region (principal); M47.27 Other spondylosis with radiculopathy, lumbosacral region; G89.29 Other chronic pain; M19.90 Unspecified osteoarthritis, unspecified site; I10 Essential (primary) hypertension; Z79.899 Other long term (current) drug therapy; Z98.890 Other specified postprocedural states

== ENCOUNTER → 2019-02-16 | Outpatient (CLI) | payer OTHER, BC ==
[~2019-02-16] VITALS: Ht 157.5 cm; Wt 49.9 kg
[2019-02-16 09:54] VITALS: BP 173/85
--- NOTE | 2019-02-16 09:56 | NUR ---
Pain Clinic Assessment: 1. History of Osteoarthritis: NO History of Rheumatoid Arthritis: NO 2. Height: 5 ft. 2 in. 157.5 cm. Weight: 110.0 lb. oz. 49.896 kg. Patient's BMI: 20.1 3. Vital Signs: BP: 173/85 Pulse: 71 Resp: 16 Temp: 02 Sat: 96 ECG Mon: 4. Pain Intensity: 3 5. Fall Risk: Dizziness: N Needs help standing or walking: N Fallen in the last 3 months: N Fall risk comments: 6. Patient on Blood Thinner: None 7. History of Hypertension: Y 8. Opioid Therapy greater than 6 weeks: N Opiate Contract Signed: 9. Risk Assessment Tool Provided: LOW RISK 12/02 10. Functional Assessment Tool: 11. Recreational Drug Use: Never Drug Type: Tobacco Use: Never Smoker Tobacco Type: Amount or Packs/day: How Many Years: Alcohol Use: No Frequency: Quant:
--- NOTE | 2019-02-23 07:49 | HPC ---
[facility] [address] [place] [address] PAIN MANAGEMENT CONSULTATION Name: GOLDEN COLÓN Room #: REG OZ Sigala.#: [id number] Admission: 02/16/19 ������������������ Attend Phys: Get Ricci DO Discharge: ������������������ Date of : 35 Report #: [id number] THIS REPORT FOR: //name// CC: [facility] physician/PCP Get TOMPKINS MD DATE OF SERVICE: 02/22/2019 CHIEF COMPLAINT: Low back pain, lower extremity pain with paresthesias, right greater than left. HISTORY OF PRESENT ILLNESS: As you know, the patient is a very extremely pleasant 83-year-old female who returns today in followup visit reporting pain score of around 3/10. She states her pain is aching and burning in sensation, exacerbated with sleeping at night and certain activities, improves with medications, repositioning, exercise and epidural injections. Previous epidural injection provided 80% improvement in overall pain lasting for nearly 6 weeks with a slow and progressive return of symptoms. She denies new injury or trauma that may have led to recurrence of pain. She returns to undergo next in the series of epidural injections under fluoroscopic guidance to address lumbar radicular symptoms. ALLERGIES: No known drug allergies. CURRENT MEDICATIONS: Gabapentin, alprazolam, Alphagan, Cosopt, fluoxetine, hydralazine, amlodipine. SOCIAL HISTORY: The patient denies tobacco, alcohol, IV or illicit drug use. She is retired, retired years ago. She is unaccompanied today. IMAGING: No new imaging available. PQRS: The patient has osteoarthritic changes of the lumbar spine, and bilateral knees, bilateral hips. No rheumatoid arthritis. She is treated for hypertension but is not on any blood thinners. She is not on long-term opioid management. She has a low opioid addiction potential. She is placing pain impact score 31/70 moderate interference of daily activities secondary to pain. PHYSICAL EXAMINATION: VITAL SIGNS: Blood pressure 173/85, pulse 71, respiratory rate 16 and unlabored. The patient is 96% on room air. Height 5 feet 2 inches tall, weight 110 pounds, BMI calculated 20.1. GENERAL: Well-developed, well-nourished, well-hydrated, thin, 83-year-old female appearing stated age, placing current pain score 3/10. HEENT: Normocephalic, atraumatic. Pupils equal, round, reactive to light. [facility] [address] [place] [address] PAIN MANAGEMENT CONSULTATION Name: GOLDEN COLÓN [id number] Admission: 02/16/19 ������������������ Attend Phys: Get Ricci DO Discharge: ������������������ Date of : 35 Report #: [id number] EXTREMITIES: Show no clubbing, no cyanosis, no edema. MUSCULOSKELETAL: Lower extremity strength is symmetrical again today. Slight giveaway strength noted with knee extension. Normal hip extension on the right compared to the left. Pain is mildly generated with this procedure. Seated straight leg raising mildly positive on the right. Supine straight leg raising positive right at approximately 50 degree angle. Jossie's test negative. Modified Gaenslen's positive for axial low back pain. ASSESSMENT: 1. Symptomatic lumbar radiculopathy. 2. Lumbosacral spondylosis with radicular symptoms. 3. Degeneration of lumbar spine. 4. Chronic intractable pain. PLAN: 1. The patient returns today in followup visit to undergo next in the series of epidural injections under fluoroscopic guidance. She reports 80% improvement in overall pain with previous epidural injection. She has requested that we will perform this epidural injection today. We did discuss our concerns about continuing injection therapies as she is now on completing series of injections that began in 2016. We did consider the possibility of having the patient undergo bone density scan before our next potential epidural injection to confirm her bone densities and determine if we need to limit epidural injections more than the typical 3 in a 6-month and 6 in a year time frame. 2. No medication changes made at today's visit. The patient will continue current medical therapy as previously prescribed. 3. The patient will return to our clinic on an as needed basis for the next in the series of epidural injections under fluoroscopic guidance. 4. The patient was advised the risks and benefits of today's epidural injection. These risks include but not necessarily limited to bleeding, bruising, infection, worsening pain, no relief of pain, also risk of temporary or permanent muscle weakness, temporary or permanent nerve damage, possible paralysis and . The patient states understood and wished to proceed. PROCEDURE NOTE DESCRIPTION OF PROCEDURE: L5-S1 interlaminar epidural steroid injection under fluoroscopic guidance. This is the third procedure of the fourth series that the patient is undergoing. After obtaining written consent, the patient was taken back to the fluoroscopy suite, placed in a prone position with pillow under the abdomen to decrease lumbar lordosis. The skin overlying the lumbosacral area was then prepped and draped in aseptic fashion. The L5-S1 vertebral interspace was then identified by AP fluoroscopy. The skin and subcutaneous tissue overlying the target site [address] [address] PAIN MANAGEMENT CONSULTATION Name: GOLDEN COLÓN Room #: REG Marly Raya#: [id number] Admission: 02/16/19 ������������������ Attend Phys: Get Ricci DO Discharge: ������������������ Date of : 35 Report #: [id number] of injection was anesthetized with 3 mL 1% lidocaine. A 20-gauge 3-1/2 inch Tuohy needle was then advanced under fluoroscopic guidance towards the epidural space using a parasagittal approach. The epidural space was identified using loss of resistance to air technique. After negative aspiration for heme or cerebrospinal fluid, a total of 1 mL of Omnipaque was injected. A lumbar epidurogram was confirmed using both AP and lateral fluoroscopy. After negative aspiration for heme or cerebrospinal fluid, 5 mL of solution containing 2 mL 40 mg per mL, 80 mg total triamcinolone, 3 mL lidocaine 1% was injected in increments. Contrast spread was noted posterior epidural space. The needle was then retracted approximately half way and needle tract flushed with 1 mL of 1% lidocaine. Needle was then removed. There were no apparent sensory or motor deficits in the lower extremity following the procedure. A sterile bandage was placed over the injection site. The heart rate, pulse, oximetry and blood pressure were continuously monitored after the procedure. There were no apparent complications. The patient tolerated the procedure well and was carefully escorted to the recovery room in stable condition. There were no apparent complications. After meeting discharge criteria, the patient was then discharged home. ��������������������������������������������� <ELECTRONICALLY SIGNED> ���������������������������������������� By: Get Ricci DO ��������������������������������������������� 02/23/19 0749 0836 2021 Get Ricci, DO /nt
== END | disposition home or self-care (01) ==
LOC: PAIN 07:05
DX: M51.16 Intervertebral disc disorders with radiculopathy, lumbar region (principal); M47.27 Other spondylosis with radiculopathy, lumbosacral region; G89.29 Other chronic pain; I10 Essential (primary) hypertension; M19.90 Unspecified osteoarthritis, unspecified site; Z79.899 Other long term (current) drug therapy; Z98.890 Other specified postprocedural states

== ENCOUNTER → 2019-05-03 | Outpatient (CLI) | payer OTHER, BC ==
[~2019-05-03] VITALS: Ht 157.5 cm; Wt 49.4 kg
[2019-05-03 08:59] VITALS: BP 152/83
--- NOTE | 2019-05-03 09:17 | NUR ---
Pain Clinic Assessment: 1. History of Osteoarthritis: NO History of Rheumatoid Arthritis: NO 2. Height: 5 ft. 2 in. 157.5 cm. Weight: 109.0 lb. oz. 49.442 kg. Patient's BMI: 19.9 3. Vital Signs: BP: 152/83 Pulse: 70 Resp: 14 Temp: 02 Sat: 98 ECG Mon: 4. Pain Intensity: 5 5. Fall Risk: Dizziness: Y Needs help standing or walking: N Fallen in the last 3 months: Y Fall risk comments: 6. Patient on Blood Thinner: None 7. History of Hypertension: Y 8. Opioid Therapy greater than 6 weeks: N Opiate Contract Signed: 9. Risk Assessment Tool Provided: LOW RISK 12/02 10. Functional Assessment Tool: 11. Recreational Drug Use: Never Drug Type: Tobacco Use: Never Smoker Tobacco Type: Amount or Packs/day: How Many Years: Alcohol Use: No Frequency: Quant:
--- NOTE | 2019-05-04 07:47 | HPC ---
[facility] [place] [address] PAIN MANAGEMENT CONSULTATION Name: GOLDEN COLÓN Room #: REG OZ Sigala.#: [id number] Admission: 05/03/19 ������������������ Attend Phys: Get Ricci DO Discharge: ������������������ Date of : 35 Report #: [id number] THIS REPORT FOR: //name// CC: [facility] physician/PCP Get Montano MD DATE OF SERVICE: 05/03/2019 REFERRING PHYSICIAN: Jaqueline Montano M.D. CHIEF COMPLAINT: Low back pain and bilateral lower extremity pain with paresthesias. HISTORY OF PRESENT ILLNESS: As you know, the patient is a very pleasant 83-year-old female returning today in followup visit with pain level of 5/10. She indicates pain begins in low back, radiates down the legs bilaterally, right greater than left. She indicates she recently sustained a fall while [place] the airport where she had a complete sensation loss of feeling around the knee on the right side. She denies loss of consciousness, change in mentation prior to or after the fall. She had no pain in the knee prior to this fall as well. She returns today in followup visit with 5/10 pain typical for her lumbar radiculopathy secondary to spinal stenosis. She returns requesting epidural injection. ALLERGIES: No known drug allergies. CURRENT MEDICATIONS: Gabapentin, alprazolam, Alphagan, Cosopt, fluoxetine, hydralazine and amlodipine. SOCIAL HISTORY: The patient denies tobacco, alcohol or IV or illicit drug use. She is retired, retired years ago, unaccompanied today. IMAGING DATA: No new imaging available. PQRS: The patient has osteoarthritic changes of the lumbar spine, bilateral knees, bilateral hips. No rheumatoid arthritis. She is treated for hypertension, but is not on any blood thinners. She is a fall risk and did have a fall in the last 3 months. She is utilizing precautions, but no ambulatory devices. She is not on long-term opioid. She has a low opiate addiction potential. Pain impact score 31/70, moderate interference of daily activities secondary to pain. PHYSICAL EXAMINATION: VITAL SIGNS: Blood pressure 152/83, pulse 70 and respiratory rate is 14 and unlabored. The patient is 98% on room air. Height 5 feet 2 inches tall, weight [facility] [address] [place] [address] PAIN MANAGEMENT CONSULTATION Name: GOLDEN COLÓN Room #: REG [facility].#: [id number] Admission: 05/03/19 ������������������ Attend Phys: Get Ricci DO Discharge: ������������������ Date of : 35 Report #: [id number] 109 pounds and BMI calculated 19.9. GENERAL: Well-developed, well-nourished, well-hydrated, thin, 83-year-old female appearing stated age, pain is rated today 5/10. HEENT: Normocephalic and atraumatic. Pupils equal, round and reactive to light. Speech fluent. The patient deemed an excellent historian. EXTREMITIES: Show no clubbing, no cyanosis and no edema. MUSCULOSKELETAL: Lower extremity strength is symmetrical, 5/5. Slight giveaway strength noted with knee extension on the right. Normal extension of the hip on the right. Pain is mildly generated with right knee extension. Seated straight leg raising is mildly positive on the right. Supine straight leg raising positive on right, approximately 50-55 degree angle. ASSESSMENT: 1. Symptomatic lumbar radiculopathy. 2. Lumbosacral spondylosis with radiculopathy. 3. Degeneration of the lumbar spine. 4. Chronic intractable pain. PLAN: 1. The patient returns today in followup visit requesting to undergo next in the series of lumbar epidural injections. She has done very well with previous epidural injections reporting upwards of near 100% improvement in overall pain with this previous injection up until that point the [place] the airport. She states after that her pain has been at a level of 5/10. She returns requesting an epidural injection under fluoroscopic guidance. She has been consented to undergo the procedure, states understood any risks and benefits and wished to proceed. 2. The patient and I had a long discussion about this recent fall. It does appear the patient was suffering from loss of proprioception of the lower extremity as her symptoms did not cause increase in pain initially nor did she have any lost consciousness or change in mentation during or after the fall, which would indicate the likely cause would be a proprioception issue secondary to her lumbar radiculopathy. The patient was advised of our concern about this issue and further imaging may be necessary. At this time, the patient wishes to avoid any further workup if at all possible as she sees improvement in symptoms with the epidural injection, she will monitor her gait. 3. No medication changes made at today's visit. The patient will continue her current medical therapy as previously prescribed. 4. We will see the patient back in followup visit on an as needed basis for next in a series of epidural injections. PROCEDURE NOTE DESCRIPTION OF PROCEDURE: L5-S1 interlaminar epidural steroid injection under fluoroscopic guidance. [address] [address] PAIN MANAGEMENT CONSULTATION Name: GOLDEN COLÓN Room #: REG OZ Raya#: [id number] Admission: 05/03/19 ������������������ Attend Phys: Get Ricci DO Discharge: ������������������ Date of : 35 Report #: [id number] This is the first procedure of the fifth series that the patient is undergoing. After obtaining written consent, the patient was taken back to the fluoroscopy suite, placed in a prone position with pillow under the abdomen to decrease lumbar lordosis. The skin overlying the lumbosacral area was then prepped and draped in aseptic fashion. The L5-S1 vertebral interspace was then identified by AP fluoroscopy. The skin and subcutaneous tissue overlying the target site of injection was anesthetized with 3 mL 1% lidocaine. A 20-gauge 3-1/2 inch Tuohy needle was then advanced under fluoroscopic guidance towards the epidural space using a paramedian approach. The epidural space was identified using loss of resistance to air technique. After negative aspiration for heme or cerebrospinal fluid, a total of 1 mL of Omnipaque was injected. A lumbar epidurogram was confirmed using both AP and lateral fluoroscopy. After negative aspiration for heme or cerebrospinal fluid, 5 mL of a solution containing 2 mL 40 mg per mL, 80 mg total triamcinolone, 3 mL lidocaine 1% was injected in increments. Contrast spread was noted posterior epidural space. The needle was then retracted approximately half way and needle tract flushed with 1 mL of 1% lidocaine. Needle was then removed. There were no apparent sensory or motor deficits in the lower extremity following the procedure. A sterile bandage was placed over the injection site. The heart rate, pulse, oximetry and blood pressure were continuously monitored after the procedure. There were no apparent complications. The patient tolerated the procedure well and was carefully escorted to the recovery room in stable condition. There were no apparent complications. After meeting discharge criteria, the patient was then discharged home. ��������������������������������������������� <ELECTRONICALLY SIGNED> ���������������������������������������� By: Get Ricci DO ��������������������������������������������� 05/04/19 0747 [id number] Get Ricci DO /nt
== END | disposition home or self-care (01) ==
LOC: PAIN 05-02 09:32
DX: M51.16 Intervertebral disc disorders with radiculopathy, lumbar region (principal); M47.27 Other spondylosis with radiculopathy, lumbosacral region; G89.29 Other chronic pain; I10 Essential (primary) hypertension; M19.90 Unspecified osteoarthritis, unspecified site; Z98.890 Other specified postprocedural states; Z79.899 Other long term (current) drug therapy

== ENCOUNTER → 2019-07-20 | Outpatient (CLI) | payer OTHER, BC ==
[~2019-07-20] VITALS: Ht 154.9 cm; Wt 51.1 kg
[~2019-07-20] MED LIST changes: +FOSAMAX 70 MG T70 MG PO
--- NOTE | ~2019-07-20 | HPC ---
[facility] [address] [place] [address] PAIN MANAGEMENT CONSULTATION Name: GOLDEN COLÓN Room #: REG OZ Sigala.#: [id number] Admission: 07/20/19 Attend Phys: Get Ricci DO Discharge: Date of : 35 Report #: [id number] THIS REPORT FOR: //name// CC: [facility] physician/PCP Get TOMPKINS MD DATE OF SERVICE: 07/20/2019 CHIEF COMPLAINT: Low back pain, bilateral lower extremity pain and paresthesias. HISTORY OF PRESENT ILLNESS: As you know, the patient is a very pleasant 84-year-old female returning in followup visit reporting a pain score of around 3/10. She reports previous epidural injection worked very well. She reports 100% improvement in overall pain lasting for nearly 7 weeks. Unfortunately, we have had a slow and progressive return of symptoms. She returns today to undergo next in the series of epidural injections in hopes of improving pain. She denies injury or trauma that may have led to symptom recurrence. She indicates pain is aching, numbness and tingling when describing symptoms exacerbated with just activities, improves with medications and previous epidural injections. ALLERGIES: No known drug allergies. CURRENT MEDICATIONS: Gabapentin, alprazolam, Alphagan, Cosopt, fluoxetine, hydralazine, amlodipine. SOCIAL HISTORY: The patient denies tobacco, alcohol, IV or illicit drug use. She is retired, retired years ago, unaccompanied today. IMAGING: No new imaging available. PQRS: The patient has known osteoarthritic changes of the lumbar spine, bilateral hips, bilateral knees, no rheumatoid arthritis. She is placing pain intensity today at around 3/10. She is not a fall risk, has not had a fall in last 3 months. She is not on blood thinners, but is treated for hypertension. She is not on chronic opioids, but does have a low opioid addiction potential based on her testing. She is placing pain impact score 31/70 moderate interference of daily activities secondary to pain. PHYSICAL EXAMINATION: VITAL SIGNS: Blood pressure 157/87, pulse 70, respiratory rate 16 and unlabored. The patient is 96% on room air. Height 5 feet 1 inch tall, weight 112.6 pounds, BMI calculated 21.3. GENERAL: Well-developed, well-nourished, well-hydrated 84-year-old female [address] [address] PAIN MANAGEMENT CONSULTATION Name: GOLDEN COLÓN Room #: REG OZ Elver#: [id number] Admission: 07/20/19 Attend Phys: Get Ricci DO Discharge: Date of : 35 Report #: [id number] appearing stated age, pain is rated today at 3/10. HEENT: Normocephalic, atraumatic. Pupils equal, round, reactive to light. EXTREMITIES: Show no clubbing, no cyanosis, and no edema. MUSCULOSKELETAL: Lower extremity strength appears symmetrical 5/5. She is intact to light touch from L1 through S2 dermatomes. Seated straight leg raising negative. Supine straight leg raising positive right. Jossie's test negative. Gait mildly antalgic favoring right lower extremity over left. ASSESSMENT: 1. Symptomatic lumbar radiculopathy. 2. Lumbosacral spondylosis with radiculopathy. 3. Degeneration of the lumbar spine. 4. Intractable pain. PLAN: 1. The patient returns today in followup visit to undergo epidural injection under fluoroscopic guidance. The patient notes excellent benefit with previous epidural injection. She returns to undergo next in the series in hopes of improving pain as we had seen with the previous intervention. She has been advised risks and benefits of the procedure, states understood and wished to proceed. 2. No medication changes made at today's visit. The patient will continue current medical therapy as previously prescribed. 3. The patient will return to our clinic on an as needed basis for possible next in a series of epidural injections. PROCEDURE NOTE: DESCRIPTION OF PROCEDURE: L5-S1 right paramedian epidural steroid injection under fluoroscopic guidance. This is the second procedure of the fifth series that the patient is undergoing. After obtaining written consent, the patient was taken back to the fluoroscopy suite, placed in a prone position with pillow under the abdomen to decrease lumbar lordosis. The skin overlying the lumbosacral area was then prepped and draped in aseptic fashion. The L5-S1 vertebral interspace was then identified by AP fluoroscopy. The skin and subcutaneous tissue overlying the target site of injection was anesthetized with 3 mL 1% lidocaine. A 20 gauge 3.5 inch Tuohy needle was then advanced under fluoroscopic guidance towards the epidural space using a right paramedian approach. The epidural space was identified using loss of resistance to fair technique. After negative aspiration for heme or cerebrospinal fluid, a total of 1 mL of Omnipaque was injected. A lumbar epidurogram was confirmed using both AP and lateral fluoroscopy. After negative aspiration for heme or cerebrospinal fluid, 5 mL of [facility] [address] [place] [address] PAIN MANAGEMENT CONSULTATION Name: GOLDEN COLÓN Room #: REG [facility] Zakiya#: [id number] Admission: 07/20/19 Attend Phys: Get Ricci DO Discharge: Date of : 35 Report #: [id number] a solution containing 2 mL 40 mg/mL, 80 mg total triamcinolone, 3 mL lidocaine 1% was injected in increments. Contrast spread was noted post epidural space. The needle was then retracted approximately half way and needle tract flushed with 1 mL of 1% lidocaine. Needle was then removed. There were no apparent sensory or motor deficits in the lower extremity following the procedure. A sterile bandage was placed over the injection site. The heart rate, pulse, oximetry and blood pressure were continuously monitored after the procedure. There were no complications. The patient tolerated the procedure well and was carefully escorted to the recovery room in stable condition. There were no apparent complications. After meeting discharge criteria, the patient was then discharged home. By: [id number] Get Ricci DO /nt
[2019-07-20 09:07] VITALS: BP 157/87
--- NOTE | 2019-07-20 09:13 | NUR ---
Pain Clinic Assessment: 1. History of Osteoarthritis: NO History of Rheumatoid Arthritis: NO 2. Height: 5 ft. 1 in. 154.9 cm. Weight: 112.6 lb. oz. 51.075 kg. Patient's BMI: 21.3 3. Vital Signs: BP: 157/87 Pulse: 70 Resp: 16 Temp: 02 Sat: 96 ECG Mon: 4. Pain Intensity: 3 5. Fall Risk: Dizziness: N Needs help standing or walking: N Fallen in the last 3 months: N Fall risk comments: 6. Patient on Blood Thinner: None 7. History of Hypertension: Y 8. Opioid Therapy greater than 6 weeks: N Opiate Contract Signed: 9. Risk Assessment Tool Provided: LOW RISK 12/02 10. Functional Assessment Tool: 11. Recreational Drug Use: Never Drug Type: Tobacco Use: Never Smoker Tobacco Type: Amount or Packs/day: How Many Years: Alcohol Use: No Frequency: Quant:
== END | disposition home or self-care (01) ==
LOC: PAIN 06:40
DX: M51.16 Intervertebral disc disorders with radiculopathy, lumbar region (principal); M47.27 Other spondylosis with radiculopathy, lumbosacral region; G89.29 Other chronic pain; I10 Essential (primary) hypertension; M19.90 Unspecified osteoarthritis, unspecified site; Z79.899 Other long term (current) drug therapy; Z98.890 Other specified postprocedural states

== ENCOUNTER → 2019-10-05 | Outpatient (CLI) | payer OTHER, BC ==
[~2019-10-05] VITALS: Ht 157.5 cm; Wt 51.5 kg
[2019-10-05 08:38] VITALS: BP 163/81
--- NOTE | 2019-10-05 08:46 | NUR ---
Pain Clinic Assessment: 1. History of Osteoarthritis: NECK KNEE History of Rheumatoid Arthritis: DENIES 2. Height: 5 ft. 2 in. 157.5 cm. Weight: 113.6 lb. oz. 51.528 kg. Patient's BMI: 20.8 3. Vital Signs: BP: 163/81 Pulse: 62 Resp: 14 Temp: 02 Sat: 97 ECG Mon: 4. Pain Intensity: 3 5. Fall Risk: Dizziness: N Needs help standing or walking: N Fallen in the last 3 months: N Fall risk comments: 6. Patient on Blood Thinner: None 7. History of Hypertension: Y 8. Opioid Therapy greater than 6 weeks: N Opiate Contract Signed: 9. Risk Assessment Tool Provided: LOW RISK 12/02 10. Functional Assessment Tool: 11. Recreational Drug Use: Never Drug Type: Tobacco Use: Never Smoker Tobacco Type: Amount or Packs/day: How Many Years: Alcohol Use: No Frequency: Quant:
--- NOTE | 2019-10-11 13:04 | HPC ---
[facility] [place] [address] PAIN MANAGEMENT CONSULTATION Name: GOLDEN COLÓN Room #: REG [facility].Saeed.#: [id number] Admission: 10/05/19 Attend Phys: Get Ricci DO Discharge: Date of : 35 Report #: [id number] THIS REPORT FOR: //name// CC: [facility] physician/PCP Get TOMPKINS MD DATE OF SERVICE: 10/05/2019 CHIEF COMPLAINT: Low back pain, bilateral lower extremity pain and paresthesias. HISTORY OF PRESENT ILLNESS: As you know, the patient is a very pleasant 84-year-old female who has returned today in followup visit to undergo next in the series of lumbar epidural injections under fluoroscopic guidance. The patient is placing a current pain score 3/10. She denies any specific injury or trauma that may have led to symptom reoccurrence. She states that she received near 100% improvement in overall pain with previous epidural injection until just the other day when her pain began to return. She is now experiencing symptoms of about a level of 3/10. She returns today for next in the series of epidural injections. She is also requesting refill of her Fosamax. She has not followed up with her PCP in regards to osteopenia. She returns for an epidural injection. ALLERGIES: No known drug allergies. CURRENT MEDICATIONS: Gabapentin, alprazolam, Alphagan, Cosopt, fluoxetine, hydralazine, amlodipine and Fosamax. SOCIAL HISTORY: The patient denies tobacco, alcohol, IV or illicit drug use. She is retired, retired years ago, unaccompanied today. IMAGING: No new imaging available. PQRS: The patient has osteoarthritic changes of the lumbar spine, bilateral hips, bilateral knees, no rheumatoid arthritis. She is placing pain score 3/10, not a fall risk, has not had a fall in last 3 months, not on any blood thinners, but is treated for hypertension. She is not on chronic opioids, has a low opioid addiction potential. Pain impact score 31/70 moderate interference of daily activities secondary to pain. PHYSICAL EXAMINATION: VITAL SIGNS: Blood pressure 163/81, pulse 62, respiratory rate 14 and unlabored. The patient is 97% on room air. Height 5 feet 2 inches tall, weight 113.6 pounds, BMI calculated 20.8. GENERAL: Well-developed, well-nourished, well-hydrated, thin, 84-year-old [address] [address] PAIN MANAGEMENT CONSULTATION Name: GOLDEN COLÓN Room #: REG CLI Saeed#: [id number] Admission: 10/05/19 Attend Phys: Get Ricci DO Discharge: Date of : 35 Report #: [id number] female appearing stated age, pain is rated today 3/10. HEENT: Normocephalic, atraumatic. Pupils equal, round, reactive to light. EXTREMITIES: Show no clubbing, no cyanosis, no edema. MUSCULOSKELETAL: Lower extremity strength remains symmetrical 5/5. Intact to light touch from L1 through S2 dermatomes. Seated straight leg raising negative. Supine straight leg raising was positive on the right. Jossie's test negative. Ankle clonus negative. Babinski is negative. She does have a mildly antalgic gait favoring right lower extremity over left. Muscle bulk and tone appears symmetrical in comparing left lower extremity to right. ASSESSMENT: 1. Symptomatic lumbar radiculopathy. 2. Lumbosacral spondylosis with radiculopathy. 3. Degeneration of lumbar spine. 4. Chronic intractable pain. PLAN: 1. The patient returns today in followup visit to undergo next in the series of lumbar epidural injections under fluoroscopic guidance. Lumbar epidural injections have provided good benefit near 100% improvement in overall pain in the last injection. She returns to undergo next in the series today. She has been advised risks and benefits of procedure, states understood and wished to proceed. 2. No medication changes made at today's visit. The patient will continue current medical therapy as previously prescribed. 3. We will see the patient back in followup visit on an as needed basis for possible next in the series of lumbar epidural injections. PROCEDURE NOTE DESCRIPTION OF PROCEDURE: L5-S1 right paramedian epidural steroid injection under fluoroscopic guidance. This is the third procedure of the fifth series that the patient is undergoing. After obtaining written consent, the patient was taken back to the fluoroscopy suite, placed in a prone position with pillow under the abdomen to decrease lumbar lordosis. The skin overlying the lumbosacral area was then prepped and draped in aseptic fashion. The L5-S1 vertebral interspace was then identified by AP fluoroscopy. The skin and subcutaneous tissue overlying the target site of injection was anesthetized with 3 mL 1% lidocaine. A 20-gauge 3-1/2 inch Tuohy needle was then advanced under fluoroscopic guidance towards the epidural space using a right approach. The epidural space was identified using loss of resistance to air technique. After negative aspiration for heme or cerebrospinal fluid, a total of 1 mL of Omnipaque was injected. A [address] [address] PAIN MANAGEMENT CONSULTATION Name: GOLDEN COLÓN Room #: WHITNEY Raya#: [id number] Admission: 10/05/19 Attend Phys: Get Ricci DO Discharge: Date of : 35 Report #: [id number] lumbar epidurogram was confirmed using both AP and lateral fluoroscopy. After negative aspiration for heme or cerebrospinal fluid, 5 mL of a solution containing 2 mL 40 mg per mL, 80 mg total triamcinolone along with 3 mL lidocaine 1% was injected in increments. Contrast spread was noted posterior epidural space. The needle was then retracted approximately half way and needle tract flushed with 1 mL of 1% lidocaine. Needle was then removed. There were no apparent sensory or motor deficits in the lower extremity following the procedure. A sterile bandage was placed over the injection site. The heart rate, pulse, oximetry and blood pressure were continuously monitored after the procedure. There were no apparent complications. The patient tolerated the procedure well and was carefully escorted to the recovery room in stable condition. There were no apparent complications. After meeting discharge criteria, the patient was then discharged home. <ELECTRONICALLY SIGNED> By: Get Ricci DO 10/11/19 1304 [id number] Get Ricci DO /nt
== END | disposition home or self-care (01) ==
LOC: PAIN 06:52
DX: M51.16 Intervertebral disc disorders with radiculopathy, lumbar region (principal); M47.27 Other spondylosis with radiculopathy, lumbosacral region; G89.29 Other chronic pain; M19.90 Unspecified osteoarthritis, unspecified site; Z79.899 Other long term (current) drug therapy

== ENCOUNTER → 2019-12-06 | Outpatient (CLI) | payer OTHER, BC ==
[~2019-12-06] VITALS: Ht 157.5 cm; Wt 51.8 kg
[~2019-12-06] MED LIST changes: +EXCEDRIN CAPLE1 EACH PO
[2019-12-06 08:56] VITALS: BP 172/86
--- NOTE | 2019-12-06 09:14 | NUR ---
Pain Clinic Assessment: 1. History of Osteoarthritis: NECK KNEE History of Rheumatoid Arthritis: DENIES 2. Height: 5 ft. 2 in. 157.5 cm. Weight: 114.2 lb. oz. 51.801 kg. Patient's BMI: 20.9 3. Vital Signs: BP: 172/86 Pulse: 62 Resp: 16 Temp: 02 Sat: 100 ECG Mon: 4. Pain Intensity: 5 5. Fall Risk: Dizziness: N Needs help standing or walking: N Fallen in the last 3 months: N Fall risk comments: 6. Patient on Blood Thinner: None 7. History of Hypertension: Y 8. Opioid Therapy greater than 6 weeks: N Opiate Contract Signed: 9. Risk Assessment Tool Provided: 2-LOW 10. Functional Assessment Tool: 11. Recreational Drug Use: Never Drug Type: Tobacco Use: Never Smoker Tobacco Type: Amount or Packs/day: How Many Years: Alcohol Use: No Frequency: Quant:
--- NOTE | 2019-12-07 12:54 | HPC ---
[facility] [address] [address] PAIN MANAGEMENT CONSULTATION Name: GOLDEN COLÓN Room #: REG OZ MGifty.#: [id number] Admission: 12/06/19 Attend Phys: Get Ricci DO Discharge: Date of : 35 Report #: [id number] THIS REPORT FOR: //name// CC: Get Montano MD DATE OF SERVICE: 12/06/2019 CHIEF COMPLAINT: Low back pain, bilateral lower extremity pain with paresthesias. HISTORY OF PRESENT ILLNESS: As you know, the patient is a very pleasant 84-year-old female returning in followup visit to undergo next in the series of lumbar epidural injections under fluoroscopic guidance. The patient states she was doing very well from the previous epidural injection standpoint with 80% improvement in overall pain until she attempted to move her [place] tree downstairs to pack up after the holidays. She states she exacerbated her symptoms at that time and her pain is now at a level of 5-7/10. She returns today in followup visit, denying any other injury or trauma, requesting to undergo a lumbar epidural injection under fluoroscopic guidance to provide analgesic benefit. She has done very well with previous epidural injections, hopeful to see similar improvement today. ALLERGIES: No known drug allergies. CURRENT MEDICATIONS: Gabapentin, alprazolam, Alphagan, Cosopt, fluoxetine, hydralazine, amlodipine and Fosamax. SOCIAL HISTORY: The patient denies tobacco, alcohol or IV illicit drug use. She is retired, retired years ago, unaccompanied today. IMAGING: No new imaging available. PQRS: The patient has known arthritic changes of the lumbar spine, bilateral hips, bilateral knees. Reports no rheumatoid arthritis. She does report osteoarthritis of the neck as well. She is placing pain intensity of 5-7/10. She is not a fall risk, has not had a fall in last 3 months, not on blood thinners, but is treated for hypertension. She is not on chronic opioids, has a low opiate addiction potential. Pain impact score 15/70 indicating mild interference of daily activities secondary to pain. PHYSICAL EXAMINATION: VITAL SIGNS: Blood pressure 172/86, pulse 62, respiratory rate 16 and unlabored. The patient is 100% on room air. Height 5 feet 2 inches tall, weight 114.2 pounds, BMI calculated 20.9. [facility] [address] [place] [address] PAIN MANAGEMENT CONSULTATION Name: GOLDEN COLÓN Room #: REG OZ Sigala#: [id number] Admission: 12/06/19 Attend Phys: Get Ricci DO Discharge: Date of : 35 Report #: [id number] GENERAL: Well-developed, well-nourished, well-hydrated, thin, 84-year-old female appearing stated age, pain is rated anywhere from 5-7/10. HEENT: Normocephalic, atraumatic. Pupils equal, round, reactive to light. EXTREMITIES: Show no clubbing, no cyanosis, no edema. MUSCULOSKELETAL: Lower extremity strength is symmetrical again today 5/5, intact to light touch from L1 through S2 dermatomes. Jossie's test is negative. Seated straight leg raising negative. Supine straight leg raising positive on right. ASSESSMENT: 1. Symptomatic lumbar radiculopathy. 2. Lumbosacral spondylosis with radiculopathy. 3. Degeneration of the lumbar spine. 4. Chronic intractable pain. PLAN: 1. The patient returns today in followup visit having received excellent benefit with previous epidural injection up to 80% improvement in overall pain. Unfortunately, the patient attempted to move her [place] tree into the basement after the holidays were completed and this led to increasing back pain. She woke the next morning with her typical lumbar radicular symptoms that have recurred. She returns today in followup visit requesting to undergo next in the series of epidural injections to build on success of previous intervention. The patient has been advised risks and benefits of the procedure, states understood and wished to proceed. 2. No medication changes made at today's visit. The patient will continue current medical therapy as previously prescribed. 3. We will see the patient back in followup visit on an as needed basis for next in the series of epidural injections. We are hopeful the patient will see good and prolonged benefit with today's procedure. DESCRIPTION OF PROCEDURE: L5-S1 right parasagittal epidural steroid injection under fluoroscopic guidance. This is the first procedure of the sixth series that the patient is undergoing. After obtaining written consent, the patient was taken back to the fluoroscopy suite, placed in a prone position with pillow under the abdomen to decrease lumbar lordosis. The skin overlying the lumbosacral area was then prepped and draped in aseptic fashion. The L5-S1 vertebral interspace was then identified by AP fluoroscopy. The skin and subcutaneous tissue overlying the target site of injection was anesthetized with 3 mL 1% lidocaine. A 20-gauge 3.5 inch Tuohy needle was then advanced under fluoroscopic guidance towards the epidural space using a right parasagittal approach. The epidural space was identified using loss of resistance to air technique. After negative [address] [address] PAIN MANAGEMENT CONSULTATION Name: GOLDEN COLÓN Room #: REG OZ Raya#: [id number] Admission: 12/06/19 Attend Phys: Get Ricci DO Discharge: Date of : 35 Report #: [id number] aspiration for heme or cerebrospinal fluid, a total of 1 mL of Omnipaque was injected. A lumbar epidurogram was confirmed using both AP and lateral fluoroscopy. After negative aspiration for heme or cerebrospinal fluid, 5 mL of a solution containing 2 mL 40 mg/mL 80 mg total triamcinolone along with 3 mL of lidocaine 1% was injected in increments. Contrast spread was noted post epidural space. The needle was then retracted approximately half way and needle tract flushed with 1 mL of 1% lidocaine. Needle was then removed. There were no apparent sensory or motor deficits in the lower extremity following the procedure. A sterile bandage was placed over the injection site. The heart rate, pulse, oximetry and blood pressure were continuously monitored after the procedure. There were no apparent complications. The patient tolerated the procedure well and was carefully escorted to the recovery room in stable condition. There were no apparent complications. After meeting discharge criteria, the patient was then discharged home. <ELECTRONICALLY SIGNED> By: Get Ricci DO 12/07/19 1254 1240 1946 Get Ricci DO /nt
== END | disposition home or self-care (01) ==
LOC: PAIN 06:46
DX: M51.16 Intervertebral disc disorders with radiculopathy, lumbar region (principal); M47.27 Other spondylosis with radiculopathy, lumbosacral region; G89.29 Other chronic pain; M19.90 Unspecified osteoarthritis, unspecified site; I10 Essential (primary) hypertension; Z79.899 Other long term (current) drug therapy; Z98.890 Other specified postprocedural states

== ENCOUNTER → 2020-04-11 | Outpatient (CLI) | payer OTHER, BC ==
[~2020-04-11] VITALS: Ht 157.5 cm; Wt 52.2 kg
[2020-04-11 13:23] VITALS: BP 161/73
--- NOTE | 2020-04-11 13:37 | NUR ---
Pain Clinic Assessment: 1. History of Osteoarthritis: NECK KNEE History of Rheumatoid Arthritis: DENIES 2. Height: 5 ft. 2 in. 157.5 cm. Weight: 115.0 lb. oz. 52.164 kg. Patient's BMI: 21.0 3. Vital Signs: BP: 161/73 Pulse: 67 Resp: 14 Temp: 02 Sat: 98 ECG Mon: 4. Pain Intensity: 3 5. Fall Risk: Dizziness: N Needs help standing or walking: N Fallen in the last 3 months: N Fall risk comments: 6. Patient on Blood Thinner: None 7. History of Hypertension: Y 8. Opioid Therapy greater than 6 weeks: N Opiate Contract Signed: 9. Risk Assessment Tool Provided: 2-LOW 10. Functional Assessment Tool: 11. Recreational Drug Use: Never Drug Type: Tobacco Use: Never Smoker Tobacco Type: Amount or Packs/day: How Many Years: Alcohol Use: No Frequency: Quant:
--- NOTE | 2020-04-11 15:17 | HPC ---
[facility] [place] [address] PAIN MANAGEMENT CONSULTATION Name: GOLDEN COLÓN Room #: REG OZ Sigala.#: [id number] Admission: 04/11/20 Attend Phys: Get Ricci DO Discharge: Date of : 35 Report #: [id number] THIS REPORT FOR: cc: RENE HEARN MD, RADHIKA MD Johnson, James E. DO ~ DATE OF SERVICE: 04/11/2020 REFERRING PHYSICIAN: Jaqueline Montano MD CHIEF COMPLAINT: Low back pain, bilateral lower extremity pain with paresthesias. HISTORY OF PRESENT ILLNESS: As you know, the patient is an extremely pleasant 84-year-old female returning in followup visit to undergo next in the series of epidural injections under fluoroscopic guidance. The patient is able to place pain at 3/10 today, which is an improvement for her. She reports with the previous epidural injection, 75% improvement in overall pain. She returns today in followup visit, denying new injury or trauma to build on success of previous intervention to undergo next in the series of epidural injections. ALLERGIES: No known drug allergies. CURRENT MEDICATIONS: Gabapentin, alprazolam, Alphagan, Cosopt, fluoxetine, hydralazine, amlodipine, and Fosamax. SOCIAL HISTORY: The patient denies tobacco, alcohol or IV illicit drug use. She is retired, retired years ago. She is unaccompanied today. IMAGING: No new imaging available. PQRS: The patient has arthritic changes of the lumbar spine, bilateral hips, and bilateral knees. No rheumatoid arthritis. She is placing pain intensity at 3/10, not a fall risk, has not had a fall in last 3 months. She is not on blood thinners, but is treated for hypertension. She is not on chronic opioids, but does have a low opioid addiction potential based on our assessment tool. Pain impact is 15/70, mild interference of daily activities secondary to pain. PHYSICAL EXAMINATION: VITAL SIGNS: Blood pressure 161/73, pulse 67, respiratory rate 14 and unlabored. The patient is 98% on room air. Height 5 feet 2 inches tall, weight 115 pounds, BMI calculated 21.0. GENERAL: Well-developed, well-nourished, well-hydrated 84-year-old female appearing stated age, pain is rated today at 3/10. HEENT: Normocephalic, atraumatic. Pupils equal, round, reactive to light. [facility] [address] [place] [address] PAIN MANAGEMENT CONSULTATION Name: GOLDEN COLÓN Room #: REG CLI [facility]#: [id number] Admission: 04/11/20 Attend Phys: Get Ricci DO Discharge: Date of : 35 Report #: [id number] Speech is fluent. EXTREMITIES: Show no clubbing, no cyanosis, and no edema. MUSCULOSKELETAL: Seated straight leg raising is negative. Supine straight leg raising is positive on the right. Jossie's test is negative. Modified Gaenslen's positive for axial low back pain. Ankle clonus is negative. Babinski remains negative. Intact to light touch from L1 through S2 dermatomes. ASSESSMENT: 1. Symptomatic lumbar radiculopathy. 2. Lumbosacral spondylosis with radiculopathy. 3. Lumbar degeneration. 4. Chronic intractable pain. PLAN: 1. The patient returns today in followup visit requesting to undergo next in the series of lumbar epidural injections under fluoroscopic guidance. The patient reports good efficacy with previous epidural injection, noting 75% improvement in overall pain. She returns today in followup visit to undergo next in the series of injections. The patient has been advised the risks and benefits of the procedure, states understood and wished to proceed. The patient has been advised of risks that are accompanied with steroid injections and the COVID-19 virus. There is a possibility that she could have a reduction in her immune response secondary to steroid exposure that could place her at higher risk for eileen COVID-19. There is also a risk that if she has signs or symptoms of COVID-19 that there could be an exacerbation of those symptoms. The patient states she understood and wishes to proceed despite the risks with COVID-19. 2. No medication changes made at today's visit. The patient will continue current medical therapy as previously prescribed. 3 We will see the patient back in followup visit on an as needed basis, possible next in the series of lumbar epidural injections. We are hopeful the patient will see good and prolonged benefit with today's procedure. DESCRIPTION OF PROCEDURE: L5-S1 right parasagittal epidural steroid injection under fluoroscopic guidance. This is the 2 procedure of the sixth series that the patient is undergoing. After obtaining written consent, the patient was taken back to the fluoroscopy suite, placed in a prone position with pillow under the abdomen to decrease lumbar lordosis. The skin overlying the lumbosacral area was then prepped and draped in aseptic fashion. The L5-S1 vertebral interspace was then identified by AP fluoroscopy. The skin and subcutaneous tissue overlying the target site of injection was anesthetized with 3 mL 1% lidocaine. [address] [address] PAIN MANAGEMENT CONSULTATION Name: GOLDEN COLÓN Room #: REG OZ Raya#: [id number] Admission: 04/11/20 Attend Phys: Get Ricci DO Discharge: Date of : 35 Report #: [id number] A 20-gauge 3-1/2 inch Tuohy needle was then advanced under fluoroscopic guidance towards the epidural space using a right parasagittal approach. The epidural space was identified using loss of resistance to air technique. After negative aspiration for heme or cerebrospinal fluid, a total of 1 mL of Omnipaque was injected. A lumbar epidurogram was confirmed using both AP and lateral fluoroscopy. After negative aspiration for heme or cerebrospinal fluid, 5 mL of a solution containing 2 mL 40 mg per mL, 80 mg total triamcinolone along with 3 mL of lidocaine 1% was injected in increments. Contrast spread was noted posterior epidural space. The needle was then retracted approximately half way and needle tract flushed with 1 mL of 1% lidocaine. Needle was then removed. There were no apparent sensory or motor deficits in the lower extremity following the procedure. A sterile bandage was placed over the injection site. The heart rate, pulse, oximetry and blood pressure were continuously monitored after the procedure. There were no complications. The patient tolerated the procedure well and was carefully escorted to the recovery room in stable condition. There were no apparent complications. After meeting discharge criteria, the patient was then discharged home. <ELECTRONICALLY SIGNED> By: Get Ricci DO 04/11/20 1517 [id number] Get Ricci, DO /nt
== END | disposition home or self-care (01) ==
LOC: PAIN 06:59
DX: M51.16 Intervertebral disc disorders with radiculopathy, lumbar region (principal); M47.27 Other spondylosis with radiculopathy, lumbosacral region; G89.29 Other chronic pain; I10 Essential (primary) hypertension; M19.90 Unspecified osteoarthritis, unspecified site; Z98.890 Other specified postprocedural states; Z79.899 Other long term (current) drug therapy

== ENCOUNTER → 2020-08-29 | Outpatient (CLI) | payer OTHER, BC ==
[~2020-08-29] VITALS: Ht 152.4 cm; Wt 51.7 kg
--- NOTE | ~2020-08-29 | HPC ---
[facility] [address] [place] [address] PAIN MANAGEMENT CONSULTATION Name: GOLDEN COLÓN Room #: REG OZ M.Saeed.#: [id number] Admission: 08/29/20 Attend Phys: Get Ricci DO Discharge: Date of : 35 Report #: [id number] THIS REPORT FOR: cc: RENE HEARN MD, RADHIKA MD Johnson, James E. DO ~ CC: Get TOMPKINS MD DATE OF SERVICE: 08/29/2020 CHIEF COMPLAINT: Low back pain, bilateral lower extremity pain, left greater than right today. HISTORY OF PRESENT ILLNESS: As you know, the patient is a very pleasant 85-year-old female returning in followup visit with bilateral lower extremity pain, left greater than right. She indicates pain is aching and constant in nature, exacerbated with walking. It improves with medications, lying down and epidural injections. She reports the previous epidural injection gave 100% improvement in overall pain, lasting for nearly 4 months. She is very pleased with response to that injection, returning today in followup visit to undergo next in the series. 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 She is being considered for possible stenting of the aorta, but has not completed the workup. She returns today without having started any anticoagulants in preparation for today's lumbar epidural injection. ALLERGIES: No known drug allergies. CURRENT MEDICATIONS: Excedrin, alendronate, atorvastatin, gabapentin, alprazolam, Alphagan, Cosopt, Prozac, hydralazine. SOCIAL HISTORY: The patient denies tobacco, alcohol, IV or illicit drug use. She is retired, retired years ago, unaccompanied today. IMAGING: No new imaging available. PQRS: The patient has known arthritic changes of the lumbar spine, bilateral hips and knees. No rheumatoid arthritis. She is placing pain today at around 5/10. She has not had a fall, nor she is a fall risk. She is not treated for any type of disease process requiring anticoagulation. She is treated for hypertension. She is a low-opioid addiction potential. Based on our assessment tool, pain impact is 35/70. PHYSICAL EXAMINATION: [facility] [address] [place] [address] PAIN MANAGEMENT CONSULTATION Name: GOLDEN COLÓN Room #: REG [facility]#: [id number] Admission: 08/29/20 Attend Phys: Get Ricci DO Discharge: Date of : 35 Report #: [id number] VITAL SIGNS: Blood pressure 150/73, pulse 68, respiratory rate 16 and unlabored. The patient is 96% on room air. Height 5 feet tall, weight 114 pounds, BMI calculated 22.3. GENERAL: Well-developed, well-nourished, well-hydrated 85-year-old delightful female, appears stated age. She is placing current pain score at 5/10. HEENT: Normocephalic, atraumatic. Pupils equal, round and reactive. Speech is fluent. EXTREMITIES: Show no clubbing, no cyanosis. No edema, but the patient does have an ecchymosis and changes to the toes consistent with showering of clot to the area. MUSCULOSKELETAL: Lower extremity strength is symmetrical 5/5, intact to light touch from L1 through S2 dermatomes. Seated straight leg raising negative. Supine straight leg raising positive. Jossie's test is negative. Modified Gaenslen's positive for axial low-back pain. Gait appears mildly antalgic today, favoring left lower extremity over right due to pain. ASSESSMENT: 1. Symptomatic lumbar radiculopathy. 2. Central canal stenosis of lumbar spine. 3. Displacement of lumbar intervertebral disk with radiculopathy. 4. Lumbosacral spondylosis with radiculopathy. 5. Chronic intractable pain. PLAN: 1. The patient has returned today in followup visit to undergo next in the series of lumbar epidural injections. She is reported 100% improvement in overall pain with the epidural injection provided at last visit. She is very pleased with response to that injection, returning today requesting next in the series. I have advised the patient of the risks and benefits of the procedure, states understood and wished to proceed. 2. 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 It does appear the patient is suffering from micro showers of clot from the turbulent flow she is experiencing in the aorta. Further workup is being proposed as surgical options may be necessary. Given the changes in her feet of late and the fact that these are continuing, I am concerned that further injury could lead to necrosis of the tissue and thus leading to possible nidus of infection. I do not wish the patient to see worsening of symptoms and have recommended that she follow up with the surgeon in regards to treatment for the aortic lesion. The patient will follow up with them today or tomorrow. 3. We will see the patient back in followup visit on an as needed basis for possible next in the series of epidural injections. We will be available to see her back in followup visit when necessary. PROCEDURE NOTE [address] [address] PAIN MANAGEMENT CONSULTATION Name: GOLDEN COLÓN Room #: REG OZ Raya#: [id number] Admission: 08/29/20 Attend Phys: Get Ricci DO Discharge: Date of : 35 Report #: [id number] DESCRIPTION OF PROCEDURE: L5-S1 intralaminar epidural steroid injection under fluoroscopic guidance. After obtaining written consent, the patient was taken back to fluoroscopy suite, placed in prone position with pillow under abdomen to decrease lumbar lordosis. Skin overlying lumbosacral area then prepped and draped in aseptic fashion. The L5-S1 vertebral interspace identified by AP fluoroscopy. Skin and subcutaneous tissue overlying target site injection anesthetized with 3 mL of 1% lidocaine. A 20-gauge 3-1/2 inch Tuohy needle advanced under fluoroscopic guidance towards the epidural space using a paramedian approach. Epidural space identified using loss of resistance to air technique. After negative aspiration for heme or cerebrospinal fluid, 1 mL of Omnipaque injected. Lumbar epidurogram confirmed using both AP and lateral fluoroscopy. After negative aspiration for heme or cerebrospinal fluid, 5 mL of a solution containing 2 mL 40 mg per mL, 80 mg total triamcinolone along with 3 mL of lidocaine 1% injected slowly. Needle retracted detention, flushed with 1 mL of 1% lidocaine and then removed. Sterile bandage placed over injection site. No new motor deficits present in the lower extremities following procedure. The patient tolerated procedure well, carefully escorted to recovery room in stable condition. No apparent complications. After meeting discharge criteria, the patient discharged home. By: [id number] Get Ricci DO /serg
[2020-08-29 12:34] VITALS: BP 150/73
--- NOTE | 2020-08-29 12:39 | NUR ---
Pain Clinic Assessment: 1. History of Osteoarthritis: NECK KNEE History of Rheumatoid Arthritis: DENIES 2. Height: 5 ft. 0 in. 152.4 cm. Weight: 114.0 lb. oz. 51.710 kg. Patient's BMI: 22.3 3. Vital Signs: BP: 150/73 Pulse: 68 Resp: 16 Temp: 02 Sat: 96 ECG Mon: 4. Pain Intensity: 5 5. Fall Risk: Dizziness: N Needs help standing or walking: N Fallen in the last 3 months: N Fall risk comments: 6. Patient on Blood Thinner: None 7. History of Hypertension: Y 8. Opioid Therapy greater than 6 weeks: N Opiate Contract Signed: 9. Risk Assessment Tool Provided: 2-LOW 10. Functional Assessment Tool: 11. Recreational Drug Use: Never Drug Type: Tobacco Use: Never Smoker Tobacco Type: Amount or Packs/day: How Many Years: Alcohol Use: No Frequency: Quant:
== END ==
LOC: PAIN 06:52
PROVIDERS: ATTEND Anesthesiology Pain Medicine
DX: M54.5 Low back pain (principal); M51.16 Intervertebral disc disorders with radiculopathy, lumbar region; M48.061 Spinal stenosis, lumbar region without neurogenic claudication; G89.29 Other chronic pain; M47.27 Other spondylosis with radiculopathy, lumbosacral region; Z79.899 Other long term (current) drug therapy; Z88.8 Allergy status to other drugs, medicaments and biological substances

== ENCOUNTER → 2020-11-20 | Outpatient (CLI) | payer OTHER, BC ==
[~2020-11-20] VITALS: Ht 152.4 cm; Wt 51.8 kg
--- NOTE | ~2020-11-20 | HPC ---
[facility] [address] [place] [address] PAIN MANAGEMENT CONSULTATION Name: GOLDEN COLÓN Room #: REG OZ Elver#: [id number] Admission: 11/20/20 Attend Phys: Get Ricci DO Discharge: Date of : 35 Report #: [id number] THIS REPORT FOR: cc: RENE HEARN MD, RADHIKA MD Johnson, James E. DO ~ DATE OF SERVICE: 11/20/2020 CHIEF COMPLAINT: Low back pain, bilateral lower extremity pain with paresthesias. HISTORY OF PRESENT ILLNESS: As you know, the patient is a very pleasant 85-year-old female returning in followup visit to address low back pain, bilateral lower extremity pain with paresthesias. The patient does have changes in the distal portion of her feet today showing erythema, skin color changes and some small excoriations. She states that this started about a week and a half ago. She has been evaluated by a vascular surgeon who indicates that the symptoms would appear to be more related to a rheumatologic issue. The patient reported that the symptoms she had were present at previous evaluations, but were at a much lesser degree and she did not make any comments about them. She did note improvement in symptoms approximately 2 days after the injection. This would be consistent with a rheumatologic issue if it is an inflammatory type disease process. We strongly recommended today that the patient follow up with Rheumatology for which apparently the patient does have an appointment in November. She returns today in followup visit to undergo lumbar epidural injection under fluoroscopic guidance to address recurrent lumbar radicular pain. The patient denies injury or trauma that may have led to symptom development. She is placing her pain score anywhere from 7-8/10. ALLERGIES: No known drug allergies. CURRENT MEDICATIONS: Excedrin, alendronate, atorvastatin, gabapentin, alprazolam, Alphagan, Cosopt, Prozac, hydralazine. SOCIAL HISTORY: The patient denies tobacco, alcohol, IV or illicit drug use. She is retired, retired years ago, unaccompanied today. IMAGING: No new imaging available. PQRS: The patient has known arthritic changes of the lumbar spine, bilateral hips and knees. No rheumatoid arthritis. She is placing pain intensity around 7-8/10. She is not a fall risk, has not had a fall in last 3 months. She is not on blood thinners, but is treated for hypertension. She is on opioids and has a low opiate addiction potential. Pain impact score is 15/70, mild interference of daily activities secondary to pain. [address] [address] PAIN MANAGEMENT CONSULTATION Name: GOLDEN COLÓN Room #: REG [facility]#: [id number] Admission: 11/20/20 Attend Phys: Get Ricci DO Discharge: Date of : 35 Report #: [id number] PHYSICAL EXAMINATION: VITAL SIGNS: Blood pressure 149/87, pulse is 82, respiratory rate 14 and unlabored. The patient is 100% on room air. Height 5 feet tall, weight 114.2 pounds, BMI calculated 22.3. GENERAL: Well-developed, well-nourished, well-hydrated, thin, 85-year-old female appearing stated age. She is placing current pain score 7-8/10. HEENT: Normocephalic, atraumatic. Pupils equal, round and reactive. The patient is wearing a mask in compliance with COVID-19 regulations. EXTREMITIES: Show no clubbing. There are cyanotic changes in the toe color and there are some excoriations in the area. Upper extremities show no clubbing, cyanosis or edema. MUSCULOSKELETAL: Lower extremity strength equal and symmetrical 5/5, intact to light touch from L1 through S2 dermatomes. Seated straight leg raising negative. Supine straight leg raising positive. Jossie's test is negative. Gait is antalgic. ASSESSMENT: 1. Symptomatic lumbar radiculopathy. 2. Central canal stenosis of the lumbar spine. 3. Displacement of lumbar intervertebral disk with radiculopathy. 4. Lumbosacral spondylosis with radiculopathy. 5. Rheumatologic changes to the bilateral feet. 6. Chronic intractable pain. PLAN: 1. The patient has returned today in followup visit with increased changes in skin color, texture and symptoms of bilateral foot numbness. Evaluation of the feet show a fairly significant cyanotic changes to the distal portion of the toes. There are some excoriations noted, also some petechiae. She has been evaluated by Vascular Surgery and advised that her symptoms would appear to be more related to a rheumatologic issue. I am in agreement with the vascular surgeon. Her blood flow appears normal, capillary refill is equal and symmetrical. She does have some changes in tactile sensation, however this may be partially due to just the edema in the areas of discomfort. The patient has noted complete resolution of these symptoms with previous epidural injections, again confirming the possible rheumatologic cause. The patient will contact our clinic early next week to advise as to whether or her symptoms do improve with the epidural injection. She does have an appointment with rheumatology in November. I do encourage the patient to follow up with them. 2. The patient has been advised of the risks and benefits of the requested lumbar epidural injection. These risks include but are not necessarily limited to bleeding, bruising, infection, worsening pain, no relief of pain, also risk of temporary or permanent muscle weakness, temporary or permanent nerve damage, possible paralysis and . The patient states understood and wished to proceed. 3. No medication changes made at today's visit. The patient will continue [address] [address] PAIN MANAGEMENT CONSULTATION Name: GOLDEN COLÓN Room #: REG OZ Raya#: [id number] Admission: 11/20/20 Attend Phys: Get Ricci DO Discharge: Date of : 35 Report #: [id number] current medical therapy as prior prescribed. 4. We plan to see the patient back in followup visit on an as needed basis for possible next in the series of epidural injections. The patient does very well with these injections. I am hopeful she will see 80% to 90% improvement she reports with each of these injections. The most recent injection according to the patient provided 80% improvement lasting 4 months. She returns today for the next in the series of epidural injections. PROCEDURE NOTE DESCRIPTION OF PROCEDURE: L5-S1 intralaminar epidural steroid injection under fluoroscopic guidance. After obtaining written consent, the patient was taken back to fluoroscopy suite, placed in prone position with pillow under abdomen to decrease lumbar lordosis. Skin overlying lumbosacral area prepped and draped in aseptic fashion. The L5-S1 vertebral interspace identified by AP fluoroscopy. Skin and subcutaneous tissue overlying target site injection anesthetized with 3 mL of 1% lidocaine. A 20-gauge 3-1/2 inch Tuohy needle advanced under fluoroscopic guidance towards the epidural space using a parasagittal approach. Epidural space identified using loss of resistance to air technique. After negative aspiration for heme or cerebrospinal fluid, 1 mL of Omnipaque injected. Lumbar epidurogram confirmed using both AP and lateral fluoroscopy. After negative aspiration for heme or cerebrospinal fluid, 5 mL of a solution containing 2 mL 40 mg per mL, 80 mg total triamcinolone along with 3 mL of lidocaine 1% injected slowly. Needle retracted senior living, flushed with 1 mL of 1% lidocaine and removed. Sterile bandage placed over injection site. No new motor deficits present in the lower extremities following procedure. The patient tolerated procedure well, carefully escorted to recovery room in stable condition. No apparent complications. After meeting discharge criteria, the patient discharged home. By: [id number] Get Ricci DO /nt
[2020-11-20 13:50] VITALS: BP 149/87
--- NOTE | 2020-11-20 14:11 | NUR ---
Pain Clinic Assessment: 1. History of Osteoarthritis: NECK KNEE History of Rheumatoid Arthritis: DENIES 2. Height: 5 ft. 0 in. 152.4 cm. Weight: 114.2 lb. oz. 51.801 kg. Patient's BMI: 22.3 3. Vital Signs: BP: 149/87 Pulse: 82 Resp: 14 Temp: 02 Sat: 100 ECG Mon: 4. Pain Intensity: 7-8 5. Fall Risk: Dizziness: N Needs help standing or walking: N Fallen in the last 3 months: N Fall risk comments: 6. Patient on Blood Thinner: None 7. History of Hypertension: Y 8. Opioid Therapy greater than 6 weeks: N Opiate Contract Signed: 9. Risk Assessment Tool Provided: 2-LOW 10. Functional Assessment Tool: 11. Recreational Drug Use: Never Drug Type: Tobacco Use: Never Smoker Tobacco Type: Amount or Packs/day: How Many Years: Alcohol Use: No Frequency: Quant:
== END | disposition home or self-care (01) ==
LOC: PAIN 07:00
PROVIDERS: ATTEND Anesthesiology Pain Medicine
DX: M51.16 Intervertebral disc disorders with radiculopathy, lumbar region (principal); M47.27 Other spondylosis with radiculopathy, lumbosacral region; M48.061 Spinal stenosis, lumbar region without neurogenic claudication; G89.29 Other chronic pain; I10 Essential (primary) hypertension; Z98.890 Other specified postprocedural states; Z79.899 Other long term (current) drug therapy; Z79.891 Long term (current) use of opiate analgesic

== ENCOUNTER → 2021-09-18 | Outpatient (CLI) | payer OTHER, BC ==
[~2021-09-18] VITALS: Ht 152.4 cm; Wt 51.0 kg
[2021-09-18 08:23] VITALS: BP 165/81
--- NOTE | 2021-09-18 08:38 | NUR ---
Pain Clinic Assessment: 1. History of Osteoarthritis: NECK KNEE History of Rheumatoid Arthritis: DENIES 2. Height: 5 ft. 0 in. 152.4 cm. Weight: 112.4 lb. oz. 50.984 kg. Patient's BMI: 22.0 3. Vital Signs: BP: 165/81 Pulse: 66 Resp: 14 Temp: 02 Sat: 99 ECG Mon: 4. Pain Intensity: 3 5. Fall Risk: Dizziness: N Needs help standing or walking: N Fallen in the last 3 months: N Fall risk comments: 6. Patient on Blood Thinner: None 7. History of Hypertension: Y 8. Opioid Therapy greater than 6 weeks: N Opiate Contract Signed: 9. Risk Assessment Tool Provided: 2-LOW 10. Functional Assessment Tool: 11. Recreational Drug Use: Never Drug Type: Tobacco Use: Never Smoker Tobacco Type: Amount or Packs/day: How Many Years: Alcohol Use: No Frequency: Quant:
--- NOTE | 2021-09-24 13:27 | HPC ---
[facility] [place] [address] PAIN MANAGEMENT CONSULTATION Name: GOLDEN COLÓN Room #: REG OZ CortezSergioSaeed.#: [id number] Admission: 09/18/21 Attend Phys: Get Ricci DO Discharge: Date of : 35 Report #: [id number] THIS REPORT FOR: cc: RENE HEARN MD, RADHIKA MD Johnson, James E. DO ~ cc: Dr. Jaqueline Montano DATE OF SERVICE: 09/18/2021 REFERRING PHYSICIAN: Jaqueline Montano MD CHIEF COMPLAINT: Low back pain, bilateral lower extremity pain with paresthesias. HISTORY OF PRESENT ILLNESS: As you know, the patient is a very pleasant 86-year-old female returning in followup visit with recurrence of low back pain, bilateral lower extremity pain with paresthesias, and she places pain at a 3/10. The patient has done very well with previous epidural injections under fluoroscopic guidance. The most recent giving near 100% improvement in overall pain, lasting for almost 3 months. She has had a slow and progressive return of symptoms over the past couple of months leading to a pain level of 3/10. She is complaining of bilateral foot pain and cyanosis, which was resolved with the previous epidural injection, indicating vascular insufficiency issues of the lower extremity mediated by lumbar radicular nerves. The patient returns today requesting a lumbar epidural injection under fluoroscopic guidance in hopes of improving pain. She denies injury or trauma that may have led to symptom recurrence. She has had no changes in medication management that would preclude the patient from undergoing a lumbar epidural injection as requested today. ALLERGIES: No known drug allergies. CURRENT MEDICATIONS: Excedrin, Alendronate, atorvastatin, gabapentin, alprazolam, Alphagan, Cosopt, hydralazine. SOCIAL HISTORY: The patient denies tobacco, alcohol, IV or illicit drug use. She is retired, retired years ago, unaccompanied today. IMAGING: No new imaging available. PQRS: The patient has known arthritic changes of lumbar spine, bilateral hips and knees. No rheumatoid arthritis. She is placing pain intensity today 3/10. She is not a fall risk, has not had a fall in last 3 months. She is not on blood thinners, but is treated for hypertension. She is on no opioid medications, has a low opioid addiction potential. Pain impact is 15/70, mild interference of daily activities secondary to pain. [facility] [address] [place] [address] PAIN MANAGEMENT CONSULTATION Name: GOLDEN COLÓN Room #: REG [facility] [id number] Admission: 09/18/21 Attend Phys: Get Ricci DO Discharge: Date of : 35 Report #: [id number] PHYSICAL EXAMINATION: VITAL SIGNS: Blood pressure 165/81, pulse 66, respiratory rate 14 and unlabored. The patient is 99% on room air. Height 5 feet tall, weight 112.4 pounds, BMI calculated 22.0. GENERAL: Well-developed, well-nourished, well-hydrated 86-year-old female appearing her stated age, pain is rated today 3/10. HEENT: Normocephalic, atraumatic. Pupils are round. She is wearing a mask in compliance with COVID-19 regulations in hospital restrictions. EXTREMITIES: Show no clubbing. There are cyanotic changes of the toes on both feet with some excoriations of the areas noted again. These are improved slightly from her previous evaluation. No clubbing in the upper extremities. No cyanosis, no edema. MUSCULOSKELETAL: Seated straight leg raising is negative. Supine straight leg raising is positive at approximately 65-degree angle. Ankle clonus is negative. Babinski is negative. Jossie's test is negative. Gait appears mildly antalgic. Muscle bulk and tone is equal and symmetrical in lower extremities. ASSESSMENT: 1. Symptomatic lumbar radiculopathy. 2. Central canal stenosis of lumbar spine. 3. Displacement of lumbar intervertebral disk with radiculopathy. 4. Lumbosacral spondylosis with radiculopathy. 5. Cyanosis of the bilateral feet. 6. Chronic intractable pain. PLAN: 1. The patient returns today in followup visit requesting to undergo lumbar epidural injection under fluoroscopic guidance. The patient has been advised of the risks and the benefits of this procedure. These risks include but are not necessarily limited to bleeding, bruising, infection, worsening pain, no relief of pain, also risk of temporary or permanent muscle weakness, temporary or permanent nerve damage, possible paralysis, and . The patient states understood and wished to proceed. 2. No medication changes made at today's visit. The patient will continue current medical therapy as prior prescribed. 3. The patient indicates that the cyanosis changes in the lower extremity, specifically over the toes improved after previous epidural injection. This would indicate that the symptoms she is experiencing are vascular related secondary to the neuropathic symptoms generated from the lumbar region. The patient is to monitor her toes carefully given the cyanotic changes there. If symptoms do improve with the epidural injection, this would once again indicates that the symptoms she is experiencing are more related to lumbar radicular patterns of vascular insufficiency versus strictly poor blood flow. If symptoms do not improve, she is to follow up with her PCP. PROCEDURE NOTE: [address] [address] PAIN MANAGEMENT CONSULTATION Name: GOLDEN COLÓN Room #: REG [facility]#: [id number] Admission: 09/18/21 Attend Phys: Get Ricci DO Discharge: Date of : 35 Report #: [id number] DESCRIPTION OF PROCEDURE: L5-S1 right parasagittal epidural steroid injection under fluoroscopic guidance. After obtaining written consent, the patient was taken back to fluoroscopy suite, placed in prone position with pillow under abdomen to decrease lumbar lordosis. Skin overlying lumbosacral area prepped and draped in aseptic fashion. The L5-S1 vertebral interspace identified by AP fluoroscopy. Skin and subcutaneous tissue overlying target site injection was anesthetized with 3 mL 1% lidocaine. A 20 gauge 3-1/2 inch Tuohy needle was advanced under fluoroscopic guidance towards the epidural space using a right parasagittal approach. The epidural space was identified using loss of resistance to air technique. After negative aspiration for heme or cerebrospinal fluid, 1 mL of Omnipaque injected. Lumbar epidurogram was confirmed using both AP and lateral fluoroscopy. After negative aspiration for heme or cerebrospinal fluid, 5 mL solution containing 2 mL 40 mg per mL 80 mg total triamcinolone along with 3 mL of lidocaine 1% injected slowly. Needle retracted long-term, flushed with 1 mL of 1% lidocaine, then removed. Sterile bandage was placed over injection site. No new motor deficits present in lower extremity following procedure. The patient tolerated the procedure well, carefully escorted to recovery room in stable condition. No apparent complications. After meeting discharge criteria, the patient discharged home. <ELECTRONICALLY SIGNED> By: Get Ricci DO 09/24/21 [id number] Get Ricci DO /nt
== END | disposition home or self-care (01) ==
LOC: PAIN 06:43
PROVIDERS: ATTEND Anesthesiology Pain Medicine
DX: M51.16 Intervertebral disc disorders with radiculopathy, lumbar region (principal); M47.27 Other spondylosis with radiculopathy, lumbosacral region; M48.061 Spinal stenosis, lumbar region without neurogenic claudication; G89.29 Other chronic pain; I10 Essential (primary) hypertension; M19.90 Unspecified osteoarthritis, unspecified site; Z98.890 Other specified postprocedural states; Z79.899 Other long term (current) drug therapy

== ENCOUNTER → 2021-12-11 | Outpatient (CLI) | payer BC ==
[~2021-12-11] VITALS: Ht 152.4 cm; Wt 52.0 kg
--- NOTE | ~2021-12-11 | HPC ---
[facility] [address] [place] [address] PAIN MANAGEMENT CONSULTATION Name: GOLDEN COLÓN Room #: REG OZ RameshSaeed.#: [id number] Admission: 12/11/21 Attend Phys: Get Ricci DO Discharge: Date of : 35 Report #: [id number] THIS REPORT FOR: cc: REENA HEARN MD, Get Jackson MD, DO ~ cc: Reena Hearn DATE OF SERVICE: 12/11/2021 CHIEF COMPLAINT: Low back pain, bilateral lower extremity pain with paresthesias. HISTORY OF PRESENT ILLNESS: As you know, the patient is a very pleasant 86-year-old female with longstanding history of lumbar radiculopathy secondary to central canal stenosis. She has undergone epidural injections under fluoroscopic guidance with excellent benefit the most recent providing 100% improvement in overall pain lasting for almost 3 months. She has had a slow and progressive return of symptoms for which she is placing pain today at a level of 5/10. States pain begins in the low back, radiates down the left leg all the way to the left calf and into the ankle. On the right side, pain radiates from the low back to the right calf area, but does not involve the ankle. The patient does report that both feet are numb and tingling, which typically resolves with the epidural injections provided in the past. She returns today in followup visit requesting to undergo a lumbar epidural injection under fluoroscopic guidance to address recurrent pain. She describes the pain as aching, constant burning, piercing, stabbing, tenderness, numbness and tingling. Places current pain score 5/10. She states that walking, standing, lying down at night and wearing any type of shoes exacerbate symptoms. Medications, lying down and epidural injections have resolved the symptoms in the past. She returns today to discuss the next in the series of lumbar epidural injections. She has had no new injury or trauma and no changes in medication management since our last visit. ALLERGIES: No known drug allergies. CURRENT MEDICATIONS: Excedrin p.r.n., alendronate 70 mg once a week, atorvastatin 20 mg per day, gabapentin 600 mg b.i.d., alprazolam 0.25 mg p.r.n., Alphagan 1 drop each eye per day, Cosopt 1 drop each eye per day, hydralazine 25 mg twice a day. SOCIAL HISTORY: The patient denies tobacco. Denies IV or illicit drug use. Denies any chronic alcohol use. She is retired, retired years ago, unaccompanied today. IMAGING: No new imaging available. [address] [address] PAIN MANAGEMENT CONSULTATION Name: GOLDEN COLÓN Room #: REG CL Elver#: [id number] Admission: 12/11/21 Attend Phys: Get Ricci DO Discharge: Date of : 35 Report #: [id number] PQRS: The patient has known arthritic changes of lumbar spine, bilateral hips and knees. No rheumatoid arthritis. The patient is placing current pain score 5/10. She is not a fall risk, has not had a fall in last 3 months. She is not on blood thinners, but is treated for hypertension. She is on no opioids, has a low opioid addiction potential based on our assessment tool. Pain impact is 15/70, mild interference of daily activities secondary to pain. PHYSICAL EXAMINATION: VITAL SIGNS: Blood pressure 161/80, pulse 68, respiratory rate 14 and unlabored. The patient 92% on room air. Height 5 feet tall, weight 114.6 pounds, BMI calculated 22.4. GENERAL: Well-developed, well-nourished, well-hydrated 86-year-old female. She appears her stated age, placing current pain score 5/10. HEENT: Normocephalic, atraumatic. She is wearing a mask in compliance with COVID-19 regulations and following hospital policies. EXTREMITIES: Show no clubbing. There are cyanotic changes of the plantar surfaces of the toes bilaterally. There are some excoriations in the areas. There is no upper extremity cyanosis or edema. MUSCULOSKELETAL: Lower extremity strength equal and symmetrical 5/5. She is intact to light touch from L1 through L5 dermatomes until the distal toes where symptoms are reduced due to the changes in her blood flow to the toes. Seated straight leg raising is negative. Supine straight leg raising is positive, mainly on the left today, but positive on the right at about 70-degree angle. Jossie's test is negative. Gait is antalgic, favoring left lower extremity over right. Lumbar provocation testing is met with increasing axial back pain. ASSESSMENT: 1. Symptomatic lumbar radiculopathy. 2. Progressively worsening central canal stenosis of lumbar spine. 3. Displacement of lumbar intervertebral disk with radiculopathy. 4. Lumbosacral spondylosis with radiculopathy. 5. Vascular changes to the bilateral feet. 6. Chronic intractable pain. PLAN: 1. The patient returns today in followup visit to request next in the series of lumbar epidural injections under fluoroscopic guidance. As indicated in the history of present illness, the patient has noted excellent benefit with previous injections reporting up to 100% improvement in overall pain lasting for almost 3 months with previous epidural injection. The patient was advised due to changes in her [employer] payer, we will have to obtain authorization for the patient to undergo a lumbar epidural injection. Authorization could take anywhere from 4-7 working days, we will begin that process immediately. Once it has been completed, we will have the patient return to undergo a lumbar epidural injection under fluoroscopic guidance as requested. The fact that the patient has received excellent benefit with injections in the past would indicate that [address] [address] PAIN MANAGEMENT CONSULTATION Name: ELDONGOLDEN Room #: REG OZ Raya#: [id number] Admission: 12/11/21 Attend Phys: Get Ricci DO Discharge: Date of : 35 Report #: [id number] we should move forward with the next in the series. 2. No medication changes made at today's visit. The patient will continue current medical therapy as prior prescribed. 3. Plan to see the patient back in followup visit as soon as our authorization has been obtained, so the patient can undergo the epidural injection requested today. I am hopeful this authorization can be done quickly and we will see the patient back as rapidly as possible to undergo the procedure as she has seen excellent benefit with these procedures in the past. 4. The patient is complaining of continued bilateral foot pain and skin color changes. Apparently, the symptoms that she is experiencing are vascular in origin. We have advised the patient on some conservative treatment options to address these issues. She will avail herself of those options. We will discuss whether or not they were effective at her followup visit. By: [id number] Get Ricci DO /serg
[2021-12-11 08:15] VITALS: BP 161/80
--- NOTE | 2021-12-11 08:25 | NUR ---
Pain Clinic Assessment: 1. History of Osteoarthritis: NECK KNEE History of Rheumatoid Arthritis: DENIES 2. Height: 5 ft. 0 in. 152.4 cm. Weight: 114.6 lb. oz. 51.982 kg. Patient's BMI: 22.4 3. Vital Signs: BP: 161/80 Pulse: 68 Resp: 14 Temp: 02 Sat: 92 ECG Mon: 4. Pain Intensity: 5 5. Fall Risk: Dizziness: N Needs help standing or walking: N Fallen in the last 3 months: N Fall risk comments: 6. Patient on Blood Thinner: None 7. History of Hypertension: Y 8. Opioid Therapy greater than 6 weeks: N Opiate Contract Signed: 9. Risk Assessment Tool Provided: 2-LOW 10. Functional Assessment Tool: 11. Recreational Drug Use: Never Drug Type: Tobacco Use: Never Smoker Tobacco Type: Amount or Packs/day: How Many Years: Alcohol Use: No Frequency: Quant:
== END ==
LOC: PAIN 06:58
PROVIDERS: ATTEND Anesthesiology Pain Medicine
DX: M51.16 Intervertebral disc disorders with radiculopathy, lumbar region (principal); M47.26 Other spondylosis with radiculopathy, lumbar region; M47.27 Other spondylosis with radiculopathy, lumbosacral region; G89.29 Other chronic pain; M79.661 Pain in right lower leg; M79.662 Pain in left lower leg; M48.061 Spinal stenosis, lumbar region without neurogenic claudication; Z79.899 Other long term (current) drug therapy

== ENCOUNTER → 2021-12-31 | Outpatient (CLI) | payer BC ==
[~2021-12-31] VITALS: Ht 154.9 cm; Wt 51.3 kg
[2021-12-31 08:06] VITALS: BP 183/78
--- NOTE | 2021-12-31 08:16 | NUR ---
Pain Clinic Assessment: 1. History of Osteoarthritis: NECK KNEE History of Rheumatoid Arthritis: DENIES 2. Height: 5 ft. 1 in. 154.9 cm. Weight: 113.0 lb. oz. 51.256 kg. Patient's BMI: 21.4 3. Vital Signs: BP: 183/78 Pulse: 73 Resp: 14 Temp: 02 Sat: 100 ECG Mon: 4. Pain Intensity: 5 TO 10 5. Fall Risk: Dizziness: N Needs help standing or walking: N Fallen in the last 3 months: N Fall risk comments: 6. Patient on Blood Thinner: None 7. History of Hypertension: Y 8. Opioid Therapy greater than 6 weeks: N Opiate Contract Signed: 9. Risk Assessment Tool Provided: 2-LOW 10. Functional Assessment Tool: 11. Recreational Drug Use: Never Drug Type: Tobacco Use: Never Smoker Tobacco Type: Amount or Packs/day: How Many Years: Alcohol Use: No Frequency: Quant:
--- NOTE | 2021-12-31 09:44 | HPC ---
[facility] [address] [place] [address] PAIN MANAGEMENT CONSULTATION Name: GOLDEN COLÓN Room #: REG OZ ..#: [id number] Admission: 12/31/21 Attend Phys: Get Ricci DO Discharge: Date of : 35 Report #: [id number] THIS REPORT FOR: cc: REENA HEARN MD, REENA Ricci,Get Elizalde DO ~ cc: Reena Hearn MD DATE OF SERVICE: 12/31/2021 REFERRING PHYSICIAN: Reena Hearn MD CHIEF COMPLAINT: Low back pain, right lower extremity pain with paresthesias with intermittent left lower extremity pain with paresthesias. HISTORY OF PRESENT ILLNESS: As you know, the patient is a very pleasant 86-year-old female returning in followup visit having received authorization to undergo lumbar epidural injection under fluoroscopic guidance to address recurrent lumbar radicular pain. The patient is placing current pain anywhere from 5-10/10 today. The majority of the symptoms she is experiencing begins in low back, radiates down the right leg. She describes the pain as chronic aching, burning, pinching, stabbing tenderness aching, burning, numbness and tingling. She indicates pain is exacerbated with walking, standing, tends to exacerbate at night when lying down and wearing shoes. She states pain is alleviated with medications to some degree, lying down, getting up and shaking her legs as well as epidural injections. The most recent epidural injection according to the patient, gave near 100% improvement in overall pain lasting for 2 months. She returns today in followup visit requesting a lumbar epidural injection under fluoroscopic guidance. ALLERGIES: No known drug allergies. CURRENT MEDICATIONS: Excedrin, alendronate 70 mg once a week, atorvastatin 20 mg per day, gabapentin 600 mg b.i.d., alprazolam 0.25 mg p.r.n., Alphagan 1 drop each eye per day, Cosopt 1 drop each eye per day, hydralazine 25 mg b.i.d. SOCIAL HISTORY: The patient denies tobacco. Denies IV or illicit drug use. Denies any chronic alcohol use. She is retired, retired years ago, unaccompanied today. IMAGING: No new imaging available. PQRS: The patient has known arthritic changes of lumbar spine, bilateral hips and knees. No rheumatoid arthritis. She is placing current pain score anywhere from 5-10/10. She is not a fall risk, has not had a fall in last 3 months. She is not on blood thinners, but is treated for hypertension. She is on no opioids, has a low opioid addiction potential based on assessment [place] [address] PAIN MANAGEMENT CONSULTATION Name: GOLDEN COLÓN Room #: REG OZ Raya#: [id number] Admission: 12/31/21 Attend Phys: Get Ricci DO Discharge: Date of : 35 Report #: [id number] impact remains in the mild range, 15/70. PHYSICAL EXAMINATION: VITAL SIGNS: Blood pressure 183/78, pulse is 73, respiratory rate 14 and unlabored. The patient 100% on room air. Height 5 feet 1 inch tall, weight 113 pounds, BMI calculated at 21.4. GENERAL: Well-developed, well-nourished, well-hydrated 86-year-old female appearing her stated age. She is in no acute distress. Awake, alert and oriented x 3. Current pain score anywhere from 5-10/10. HEENT: Normocephalic, atraumatic. She is wearing a mask in compliance with COVID-19 regulations and hospital policies. EXTREMITIES: Show no clubbing. There are cyanotic changes of the bilateral feet and plantar surfaces of the feet and toes. There are excoriations over the toes as well. No upper extremity cyanosis or edema. MUSCULOSKELETAL: Lower extremity strength equal and symmetrical 5/5, intact to light touch from L1 through S2 dermatomes. Gait is antalgic. Seated straight leg raising is positive on the right. Supine straight leg raising positive on the right. ASSESSMENT: 1. Symptomatic lumbar radiculopathy. 2. Progressively worsening central canal stenosis of lumbar spine. 3. Displacement of lumbar intervertebral disk with radiculopathy. 4. Lumbosacral spondylosis with radiculopathy. 5. Vascular insufficiency of the lower extremities. 6. Chronic intractable pain. PLAN: 1. The patient returns today in followup visit having received authorization to undergo lumbar epidural injection under fluoroscopic guidance. The patient has been advised of the risks and the benefits of a lumbar epidural injection. These risks include, but are not necessarily limited to; bleeding, bruising, infection, worsening of pain, no relief of pain, temporary or permanent muscle weakness, temporary or permanent nerve damage, possible paralysis, post-dural puncture headache and . The patient states understood and wished to proceed. 2. No medication changes made at today's visit. The patient will continue current medical therapy as prior prescribed. 3. We will see the patient back in followup visit on an as needed basis for the next in a series of epidural injections. I am hopeful the patient will once again see good and prolonged benefit with the injection provided today. DESCRIPTION OF PROCEDURE: L5-S1 right paramedian epidural steroid injection under fluoroscopic guidance. After obtaining written consent, the patient was taken back to fluoroscopy [facility] [address] [place] [address] PAIN MANAGEMENT CONSULTATION Name: GOLDEN COLÓN Room #: REG OZ Raya#: [id number] Admission: 12/31/21 Attend Phys: Get Ricci DO Discharge: Date of : 35 Report #: [id number], placed in prone position with pillow under abdomen to decrease lumbar lordosis. Skin overlying lumbosacral area prepped and draped in aseptic fashion. The L5-S1 vertebral interspace identified by AP fluoroscopy. Skin and subcutaneous tissue overlying target site injection anesthetized with 3 mL of 1% lidocaine. A 20-gauge 3-1/2-inch Tuohy needle advanced under fluoroscopic guidance towards the epidural space using a paramedian approach. Epidural space identified using loss of resistance to air technique. After negative aspiration for heme or cerebrospinal fluid, 1 mL of Omnipaque injected. Lumbar epidurogram was confirmed using both AP and lateral fluoroscopy. After negative aspiration for heme or cerebrospinal fluid, 5 mL of a solution containing 1 mL 40 mg per mL, 40 mg total triamcinolone, 1 mL of Depo-Medrol 80 mg per mL 80 mg total Depo-Medrol and 3 mL of lidocaine 1% preservative-free was injected slowly. Needle then retracted senior care, flushed with 1 mL of 1% lidocaine and removed. Sterile bandage placed over injection site. No new motor deficits present in the lower extremities following procedure. The patient tolerated the procedure well, carefully escorted to recovery room in stable condition. No apparent complications. After meeting our discharge criteria, the patient discharged home. <ELECTRONICALLY SIGNED> By: Get Ricci DO 12/31/21 [id number] Get Ricci DO /nt
== END | disposition home or self-care (01) ==
LOC: PAIN 07:47
PROVIDERS: ATTEND Anesthesiology Pain Medicine
DX: M51.16 Intervertebral disc disorders with radiculopathy, lumbar region (principal); M48.061 Spinal stenosis, lumbar region without neurogenic claudication; M47.27 Other spondylosis with radiculopathy, lumbosacral region; G89.29 Other chronic pain; I73.9 Peripheral vascular disease, unspecified; I10 Essential (primary) hypertension; M19.90 Unspecified osteoarthritis, unspecified site; Z98.890 Other specified postprocedural states; Z79.899 Other long term (current) drug therapy